=== PATIENT | female | born 1975 | race Caucasian/White ===

== ENCOUNTER 2019-12-18 12:39 | Day surgery (SDC) | payer OTHER, SELFPAY ==
[2019-12-17 12:12] VITALS: BMI 26.6
[2019-12-18] VITALS (8 sets, daily range): BP systolic 121–133; BP diastolic 70–89; PULSE 78–105; RESP 7–20; TEMP 36.2–36.9; O2SAT 95–100; BMI 25.8
--- NOTE | 2019-12-18 | PATH_ITS ---
[facility] Accession Number: [id number] . 01 Material submitted: . hemorrhoids - RECTAL HEMORRHOID . 01 Diagnosis: Anus/Rectum, Hemorrhoidectomy: External and internal hemorrhoidal tissue. Negative for dysplasia and malignancy. MRV 12/20/2019 1239 Local . 01 Electronically signed: . Alicia Blanca MD, Pathologist NPI- [id number] . 01 Gross description: . Received in formalin and labeled with rectal hemorrhoid are three pieces of timmons, firm tissue ranging in size from 3.2 x 1.5 x 1.0 to 2.0 x 0.9 x 0.7 cm. The three pieces are inked blue at the possible resection margin, serially sectioned and submitted in territory sales representative sections in cassettes A1-A3, with three pieces per cassette. ([id number]) /MRV 12/19/2019 0936 Local . 01 Pathologist provided ICD-10: K64.9 . 01 CPT . 350714 Performed at: [address] [id number] MD Surinder Bowilng MD Phone: [phone]
[2019-12-18] MEDS: LACTATED RINGERS 1,000 ML 100 ML IV ×2 (12:55→16:06)
--- NOTE | 2019-12-18 15:03 | PM.PREOP ---
Pre-operative Note Interval Note History & Physical reviewed/Exam performed by Physician: Yes Changes to H&P: No
[2019-12-18] MEDS: SCOPOLAMINE 1 PATCH TOP (15:33)
--- NOTE | 2019-12-18 15:56 | SUR.OPER ---
Prone on padded OR bed, head in foam head support, gel chest rolls, gel pad under knees, pillow under lower legs, toes free of pressure, arms secured on padded arm boards at <90 degrees abduction. Safety belt at thigh.
[2019-12-18] MEDS: BUPIVACAINE 0.25% (PF) VIAL 30 ML INJ (16:02)
[2019-12-18] MEDS: DIBUCAINE 1% OINT 28 GM 1 APPLIC TOP (16:03)
[2019-12-18] MEDS: fentaNYL 100 MCG/2 ML INJ IV ×2 (16:37→16:47)
--- NOTE | 2019-12-18 16:45 | PM.OP.1 ---
Operative Date/Time/Diagnoses Date of procedure: 12/18/19 Time of procedure: 16:45 Pre-op diagnosis: hemorrhoids Post-op diagnosis: same Procedure & Clinicians Procedure: closed excisional hemorrhoidectomy Same procedure as scheduled: Yes Indications: symptomatic prolapsing hemorrhoids Surgeon: Sampson Davis Anesthesia Type: General Operative Notes Findings: prolapsing hemorrhoids right anterior posterior and left lateral columns Specimen(s): other (hemorrhoids) Estimated Blood Loss (mL): 20 Procedure in detail: The patient was brought to the operating room placed supine on the table. Bilateral lower extremity compression devices were applied. General anesthesia was induced and they were intubated with an LMA. They were then placed into lithotomy position. They were then prepped and draped in usual sterile fashion. Time-out was performed ensure the correct patient procedure necessary equipment within the operating room. Rectal block was performed by injecting 20 mL of 0.25% bupivacaine into the intersphincteric groove. A internal examination of the anal canal was made. The right anterior right posterior and left lateral hemorrhoidal pedicles freely prolapsed. They were grasped elevated and excised with electorcautery off the internal spincter. The mucosal defect was then closed with a running 3-0 Vicyrl suture. Hemostasis was checked. The specimens were passed off the field. Wound was irrigated with saline. Gelfoam was then placed into the anal anal. Sponge and instrument counts were correct at the end of the procedure. They emerged from anesthesia were extubated and transferred to the postoperative care unit in stable condition Complications: none Post-operative Condition: stable Disposition: same day surgery
[2019-12-18] MEDS: CODEINE/ACETAMINOPHEN 30/300 TABLET 1 TAB PO (16:49)
--- NOTE | 2019-12-18 17:32 | SUR.PHASEII ---
Assisted patient to bathroom via wheelchair. Mother has prescription and all paperwork.
== END 2019-12-18 17:39 | disposition home or self-care (01) ==
PROVIDERS: Family Provider Family Medicine; PCP Internal Medicine; Referring Provider Internal Medicine; Visit Provider Surgery
PROC: (CPT 46260; principal; 2019-12-18 14:15)
DX: K64.2 Third degree hemorrhoids (principal)
CPT/HCPCS: 46260; J0330; J1100; J2405; J2704; J3010

== ENCOUNTER → 2020-06-14 14:11 | Outpatient (CLI) | payer OTHER, SELFPAY ==
[2020-06-16 01:29] LABS: COVID19 Sendout Not Detected (Not Detect)
== END ==
PROVIDERS: Family Provider Family Medicine; PCP Internal Medicine; Visit Provider Nurse Practitioner
DX: Z11.59 Encounter for screening for other viral diseases (principal)
CPT/HCPCS: 87635

== ENCOUNTER 2020-06-17 07:56 | Day surgery (SDC) | payer OTHER, SELFPAY ==
[2020-06-11 12:46] VITALS: BMI 27.3
[2020-06-17] VITALS (8 sets, daily range): BP systolic 99–119; BP diastolic 46–79; PULSE 78–98; RESP 13–20; TEMP 36.4–37.1; O2SAT 93–99; BMI 27.3
--- NOTE | 2020-06-17 | PATH_ITS ---
[facility] Accession Number: [id number] . 01 Material submitted: . hemorrhoids - HEMORRHOIDS . 01 Clinical history: . EXCISION HEMORRHOIDECTOMY . 02 Diagnosis: Hemorrhoids, Hemorrhoidectomy: Portions of hemorrhoid x3; negative for atypia or malignancy. MRV 06/19/2020 1352 Local . 02 Electronically signed: . Maira Krishna MD, Pathologist NPI- [id number] . 01 Gross description: . HEMORRHOIDS: Received in formalin are 3 fragments of baez soft tissue measuring 2.0 x 1.0 x 0.6 cm in aggregate. Tissue is inked. Specimen is sectioned and submitted in client support representative sections in 1 cassette. /SILVINA 06/18/2020 0147 Local . 02 Pathologist provided ICD-10: K64.9 . 02 CPT . 963324 Performed at: 01 [facility] [address], [place], [place] [id number] MD Surinder Bowling MD Phone: [phone] Performed at: [address] [facility] [place] [address] [place], [place] [id number] MD Paz Cooper MD Phone: [phone]
[2020-06-17] MEDS: LACTATED RINGERS 1,000 ML 42 ML IV (08:19)
[2020-06-17] MEDS: SCOPOLAMINE 1 PATCH TOP (09:33)
[2020-06-17] MEDS: BUPIVACAINE LIPOSOME 266 MG/20 ML VIAL INJ (10:00)
[2020-06-17] MEDS: DIBUCAINE 1% OINT 28 GM 1 APPLIC TOP (10:24)
--- NOTE | 2020-06-17 10:28 | PM.OP.1 ---
Operative Date/Time/Diagnoses Date of procedure: 06/17/20 Time of procedure: 10:28 Pre-op diagnosis: prolapsing hemorrhoids Post-op diagnosis: same Procedure & Clinicians Procedure: excisional hemorrhoidectomy Same procedure as scheduled: Yes Indications: 45F had a prior hemorrhoid surgery developed recurrent disease with prolapsing hemorrhoids here for elective hemorhoidectomy Surgeon: Sampson Davis Anesthesia Type: General Operative Notes Findings: Prolapsing grade 3 internal hemorrhoids left lateral, and right anterior & posterior Estimated Blood Loss (mL): 30 Procedure in detail: The patient was brought to the operating room placed supine on the table. Bilateral lower extremity compression devices were applied. General anesthesia was induced and they were intubated with an endotracheal tube. They were then placed into prone position and appropriately padded. They were then prepped and draped in usual sterile fashion. Time-out was performed. Rectal block was performed by injecting 20 mL of xerperal into the intersphincteric groove. A internal examination of the anal canal was made. The right anterior and right posterior and left lateral hemorrhoidal pedicles freely prolapsed consistent with grade 3. Begining with the left lateral pedicle it was grasped elevated and excised with electorcautery off the internal spincter. The mucosal defect was then closed with a running 3-0 Vicyrl suture. Hemostasis was checked. The procedure was then repeated for the right anterior and posterior. The specimens were passed off the field. Wound was irrigated with saline. Gelfoam coated in Dibucaine ointement !% was then placed into the anal anal. Sponge and instrument counts were correct at the end of the procedure. They emerged from anesthesia were extubated and transferred to the postoperative care unit in stable condition Complications: none Post-operative Condition: stable Disposition: same day surgery
[2020-06-17] MEDS: OXYCODONE IR 5 MG TABLET PO (11:41)
--- NOTE | 2020-06-17 15:58 | SUR.PHASEII ---
Late entry: brought in, rectal area c/d/i. Medicated- see EMAR, left when ready and left in stable condition.
== END 2020-06-17 11:50 | disposition home or self-care (01) ==
PROVIDERS: Family Provider Family Medicine; PCP Family Medicine; Referring Provider Surgery; Visit Provider Surgery
PROC: (CPT 46260; principal; 2020-06-17 09:15)
DX: K64.2 Third degree hemorrhoids (principal); M79.7 Fibromyalgia
CPT/HCPCS: 46260; C9290; J0330; J1100; J2250; J2405; J2704; J3010

== ENCOUNTER → 2020-08-26 15:21 | Outpatient (CLI) | payer OTHER, SELFPAY ==
--- NOTE | 2020-08-26 15:23 | DI.US.S_ITS ---
PROCEDURE: US PELVIC COMPLETE INDICATIONS: hx. ovarian cyst; abdominal bloating and fullness TECHNIQUE: Real-time scanning was performed of the pelvic organs, with image documentation. Additional endovaginal scanning was necessary due to incomplete visualization of the adnexal and endometrial structures by transabdominal scanning. COMPARISON: [facility], , PELVIC COMPLETE, 08/13/2013, 16:30. [facility], , PELVIC COMPLETE, 04/19/2013, 12:39. [facility], , PELVIC COMPLETE, 03/12/2016, 15:52. FINDINGS: Transabdominal scanning: Limited scanning through the kidneys shows no hydronephrosis. No pathologic free abdominal or pelvic fluid. Endovaginal scanning: Uterus: Uterus is normal in size at 9.1 x 3.9 x 4.9 cm. The endometrium measures 3 mm in combined thickness. Ovaries: The right ovary measures 1.9 x 1.3 x 1.4 cm. The left ovary measures 2.4 x 1.6 x 1 cm. The ovaries have a normal sonographic appearance. Normal appearing arterial waveforms are confirmed to each ovary. No adnexal masses are seen. IMPRESSION: Normal appearing ovaries, without cysts, masses, or ovarian torsion. Dictated by: Cm Caal M.D. on 08/26/2020 at 16:38 Approved by: Cm Caal M.D. on 08/26/2020 at 16:39
== END ==
PROVIDERS: Family Provider Family Medicine; PCP Family Medicine; Referring Provider Obstetrics & Gynecology; Visit Provider Obstetrics & Gynecology
DX: N83.201 Unspecified ovarian cyst, right side (principal); R14.0 Abdominal distension (gaseous); Z87.42 Personal history of other diseases of the female genital tract
CPT/HCPCS: 76856

== ENCOUNTER → 2020-09-20 10:26 | Outpatient (CLI) | payer OTHER, SELFPAY ==
--- NOTE | 2020-09-20 | DI.MG.S_ITS ---
BILATERAL DIGITAL SCREENING MAMMOGRAM 3D/2D WITH CAD: 09/20/2020 CLINICAL: Routine screening. Comparison is made to exams dated: 12/21/2016 mammogram and 06/25/2015 mammogram - [facility]. The tissue of both breasts is extremely dense, which lowers the sensitivity of mammography. Current study was also evaluated with a Computer Aided Detection (CAD) system. No significant masses, calcifications, or other findings are seen in either breast. There has been no significant interval change. IMPRESSION: NEGATIVE There is no mammographic evidence of malignancy. A 1 year screening mammogram is recommended. This exam was interpreted at Station ID: [id number]. NOTE: For mammograms, a report in lay terms will be sent to the patient. Approximately 15% of breast malignancies will not be visualized mammographically. In the management of a palpable breast mass, a negative mammogram must not discourage biopsy of a clinically suspicious lesion. Electronically Signed By: Suzanne maddox/nicole:09/22/2020 17:36:44 letter sent: Normal Exam ACR BI-RADS Category 1: Negative 3341F
== END ==
PROVIDERS: Family Provider Family Medicine; PCP Family Medicine; Referring Provider Family Medicine; Visit Provider Family Medicine
DX: Z12.31 Encounter for screening mammogram for malignant neoplasm of breast (principal)
CPT/HCPCS: 77063; 77067

== ENCOUNTER 2021-04-15 11:00 | Outpatient (RCR) | payer OTHER, SELFPAY ==
--- NOTE | 2021-02-18 16:00 | PT.OPPOC ---
Physical, Occupational & Speech Therapy At [facility] Current Diagnoses Incomplete uterovaginal prolapse (02/18/21) Rectocele (02/18/21) Pelvic and perineal pain (02/18/21) Visit Care Team Role Provider Type Aldair Aiken MD Attending Provider Physician Family Provider Primary Care Provider Referring Provider Specialty: Family Practice Address: [address] [place] [address], [facility] [place], [place], [facility] Email: [email or web address] Plan Of Care PT-OP-T Assessment and Plan Start: 02/18/21 07:31 Freq: Status: Active Protocol: Document 02/18/21 13:30 AMB (Rec: 02/20/21 10:03 AMB [id number]) Physical Therapy Assessment Rehab Potential Rehabilitation Potential Good Evaluation Complexity Number of Personal Factors/Comorbidities 3 or More Number of Body Systems Impaired 3 Clinical Presentation at Evaluation Evolving Impairments Impairments Functional Activities,Pain, Soft Tissue Mobility,Strength Goals Three Impairment Prolapse Product Owner Goal (LTG) Linn will be able to void both stool and urine without feeling the need to strain. LTG Duration 10 weeks Two Impairment Pelvic floor strength Short Term Goal (STG) Linn will improve her pelvic floor strength to at least 3/5. STG Duration 5 weeks Half-Way Goal (LTG) Linn will lift 20# while maintaining a pelvic floor contraction. LTG Duration 10 weeks One Impairment Pelvic floor HEP Short Term Goal (STG) Linn will be independent and consistent with a HEP for her pelvic floor strengthening and stretching. STG Duration 5 weeks Assessment Summary Assessment Linn attends physical therapy for prolapse. She has a long history of constipation, and it is thought that her pelvic floor tension is causing some of the difficulty voiding issues. Even with miralax she feels rectal pressure, sits on the toilet, and sometimes nothing happens. Has a large bowel movement every 3 days and then feels a lot of prolapse pressure afterwards. 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 She does report painful intercourse after the of her second child wear she tore more anteriorly. She was quite weak in her pelvic floor and did have tenderness bilaterally at obterator internus. She will benefit from pelvic floor physical therapy, although she did have previous pelvic floor physical therapy for stress urinary incontinence a few years ago and that therapy did not significantly change her symptoms. Physical Therapy Plan Frequency and Duration Frequency of Treatment 1x/Week Duration of Treatment 10 weeks Plan of Care Start Date 02/18/21 Plan of Care End Date 04/29/21 Therapeutic Interventions Therapeutic Interventions Home Exercise Program,Manual Therapy,Neuromuscular Re- education,Self-Care/Home Management,Therapeutic Activities,Therapeutic Exercises Modalities Biofeedback,Electric Stimulation Plan of Care Dates Plan of Care Start Date 02/18/21 Plan of Care End Date 04/29/21 Electronically Signed by: Heidy Cheatham, PT 02/22/21 [id number] Please Sign and Return: I have reviewed this Plan of Care and certify that the skilled therapy services above are required to meet the patient?s needs. Physician Signature Date Printed Name and Credentials Clinical Instructor Signature Printed Name and Credentials
--- NOTE | 2021-02-18 16:00 | PT.OIE ---
Current Diagnoses Incomplete uterovaginal prolapse (02/18/21) Rectocele (02/18/21) Pelvic and perineal pain (02/18/21) Past Medical History (Last Reviewed 08/21/20 @ 17:37 by Kelsie Kamara MD) Anesthesia complication Asthma Bipolar 1 disorder Dog bite of hand (12/2008) Fibromyalgia Headache, migraine Past Surgical History (Last Reviewed 08/21/20 @ 17:37 by Kelsie Kamara MD) History of ankle surgery (03/2019) Hx of appendectomy (10/2012) Hx of hemorrhoidectomy (12/18/19) Hx of laparoscopy (03/2017) Hx of lumpectomy (09/2016) Hx of removal of cyst (1997) Hx of tonsillectomy (2016) Status post appendectomy Status post endoscopy Status post laparoscopy (03/26/16) Status post loop electrosurgical excision procedure (LEEP) of cervix Visit Care Team Role Provider Type Aldair Aiken MD Attending Provider Physician Family Provider Primary Care Provider Referring Provider Specialty: [facility] Address: [address] [place] [address] [place], [place], [facility] Email: [email or web address] Physical Therapy Initial Evaluation PT-OP-A Visit Information Start: 02/18/21 07:31 Freq: Status: Active Protocol: Document 02/18/21 13:30 AMB (Rec: 02/18/21 16:10 AMB [email or web address]) Out-Patient Physical Therapy Visit Information Visit Information Visit Type Initial Evaluation Visit Start Time 13:30 Visit Stop Time 14:15 Total Visit Minutes 45 Visit Number 1 PT-OP-B Current Condition Start: 02/18/21 07:31 Freq: Status: Active Protocol: Document 02/18/21 13:30 AMB (Rec: 02/18/21 16:28 AMB [email or web address]) Current Condition History of Current Condition Onset Date 2019 Current Complaints prolapse in the context of chronic constipation History of Current Condition Linn attends physical therapy with difficulty having bowel movements in the context of Celiac and IBS diagnosis. Taking miralax now , and it is better, but still only has a bowel movement maybe once every 3 days and then it is large but soft. Was evaluated by urogyn who said she needed to work on her constipation before dealing with her prolapse. Any straining increases feeling of pelvic heaviness. Recently had two hemheroidectomies and after the second felt like having a bowel movement was harder. History of 2 vaginal deliveries with tearing 10 years ago+. 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 RA and fibromyalgia diagnoses. Does have a history of painful intercourse since baby #2 was born. Does have a little bit of stress urinary incontinence as well. Doesn't drink enough water. Treatment Goals Patient/Caregiver Goals Be able to have bowel movement without pelvic floor heaviness/pain afterward Personal Factors Other Personal Factors That May Effect RA, fibromyalgia, IBS, SI pain Therapy/Recovery PT-OP-C Subjective Start: 02/18/21 07:31 Freq: Status: Active Protocol: Document 02/18/21 13:30 AMB (Rec: 02/20/21 10:03 AMB [id number]) Patient Questionnaires Pelvic Pain and Urgency/Frequency Patient Symptom Scale Pelvic Pain Score 14 PT-OP-I Pelvic Floor Start: 02/18/21 07:31 Freq: Status: Active Protocol: Document 02/18/21 13:30 AMB (Rec: 02/22/21 10:57 AMB [email or web address]) Pelvic Floor Assessment Urine Pelvic Floor Surgery No Urinary Symptoms Prolapse,Incomplete Emptying, Falling Out Feeling/Heavy Leakage Size Small Leakage Cause Cough,Exercise,Sneeze Other Leakage Causes intercourse Leaks Per Day 2 Voiding Frequency 10x/day Nocturia 1 Urine Pad Type Panty Liner Bowel Bowel Symptoms Constipation Bowel Movement Frequency every 3 days Ralls Stool Chart Type 1-7 4 Ralls Stool Chart Comments with miralax Pelvic Clock Pelvic Clock Other Tenderness at obturator internus bilaterally Prolapse Cystocele Grade 2 Rectocele Grade 3 Prolapse Comments pt states she has been able to see cervix, cervix not visualized today with valsalva , but more rectocele Perineal Descent Resting Absent Bearing Present Contraction Ability Voluntary Contraction Weak Voluntary Relaxation Moderate Manual Muscle Testing Left 1 Manual Muscle Testing Right 1 Manual Muscle Testing Anterior 1 Manual Muscle Testing Posterior 2 Muscle Endurance (Seconds) 4 Number of Quick Contractions In 10 3 Seconds PT-OP-T Assessment and Plan Start: 02/18/21 07:31 Freq: Status: Active Protocol: Document 02/18/21 13:30 AMB (Rec: 02/20/21 10:03 AMB [id number]) Physical Therapy Assessment Rehab Potential Rehabilitation Potential Good Evaluation Complexity Number of Personal Factors/Comorbidities 3 or More Number of Body Systems Impaired 3 Clinical Presentation at Evaluation Evolving Impairments Impairments Functional Activities,Pain, Soft Tissue Mobility,Strength Goals Three Impairment Prolapse Railroad Brake Repairer Goal (LTG) Linn will be able to void both stool and urine without feeling the need to strain. LTG Duration 10 weeks Two Impairment Pelvic floor strength Short Term Goal (STG) Linn will improve her pelvic floor strength to at least 3/5. STG Duration 5 weeks Fdc Goal (LTG) Linn will lift 20# while maintaining a pelvic floor contraction. LTG Duration 10 weeks One Impairment Pelvic floor HEP Short Term Goal (STG) Linn will be independent and consistent with a HEP for her pelvic floor strengthening and stretching. STG Duration 5 weeks Assessment Summary Assessment Linn attends physical therapy for prolapse. She has a long history of constipation, and it is thought that her pelvic floor tension is causing some of the difficulty voiding issues. Even with miralax she feels rectal pressure, sits on the toilet, and sometimes nothing happens. Has a large bowel movement every 3 days and then feels a lot of prolapse pressure afterwards. 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 She does report painful intercourse after the of her second child wear she tore more anteriorly. She was quite weak in her pelvic floor and did have tenderness bilaterally at obterator internus. She will benefit from pelvic floor physical therapy, although she did have previous pelvic floor physical therapy for stress urinary incontinence a few years ago and that therapy did not significantly change her symptoms. Physical Therapy Plan Frequency and Duration Frequency of Treatment 1x/Week Duration of Treatment 10 weeks Plan of Care Start Date 02/18/21 Plan of Care End Date 04/29/21 Therapeutic Interventions Therapeutic Interventions Home Exercise Program,Manual Therapy,Neuromuscular Re- education,Self-Care/Home Management,Therapeutic Activities,Therapeutic Exercises Modalities Biofeedback,Electric Stimulation
--- NOTE | 2021-02-24 15:45 | PT.OTN ---
Current Diagnoses Incomplete uterovaginal prolapse (02/24/21) Rectocele (02/24/21) Pelvic and perineal pain (02/24/21) Physical Therapy Treatment Note PT-OP-A Visit Information Start: 02/18/21 07:31 Freq: Status: Active Protocol: Document 02/24/21 13:45 AMB (Rec: 02/24/21 14:30 AMB [id number]) Out-Patient Physical Therapy Visit Information Visit Information Visit Type Treatment Note Visit Start Time 13:45 Visit Stop Time 14:30 Total Visit Minutes 45 Visit Number 2 PT-OP-B Current Condition Start: 02/18/21 07:31 Freq: Status: Active Protocol: Document 02/18/21 13:30 AMB (Rec: 02/18/21 16:28 AMB [email or web address]) Current Condition History of Current Condition Onset Date 2019 Current Complaints prolapse in the context of chronic constipation History of Current Condition Linn attends physical therapy with difficulty having bowel movements in the context of Celiac and IBS diagnosis. Taking miralax now , and it is better, but still only has a bowel movement maybe once every 3 days and then it is large but soft. Was evaluated by urogyn who said she needed to work on her constipation before dealing with her prolapse. Any straining increases feeling of pelvic heaviness. Recently had two hemheroidectomies and after the second felt like having a bowel movement was harder. History of 2 vaginal deliveries with tearing 10 years ago+. 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 RA and fibromyalgia diagnoses. Does have a history of painful intercourse since baby #2 was born. Does have a little bit of stress urinary incontinence as well. Doesn't drink enough water. Treatment Goals Patient/Caregiver Goals Be able to have bowel movement without pelvic floor heaviness/pain afterward Personal Factors Other Personal Factors That May Effect RA, fibromyalgia, IBS, SI pain Therapy/Recovery PT-OP-C Subjective Start: 02/18/21 07:31 Freq: Status: Active Protocol: Document 02/24/21 13:45 AMB (Rec: 02/24/21 14:30 AMB [id number]) OP-PT Subjective Patient Comments Patient Comments Pt is doing fine, about the same. PT-OP-I Pelvic Floor Start: 02/18/21 07:31 Freq: Status: Active Protocol: Document 02/18/21 13:30 AMB (Rec: 02/22/21 10:57 AMB [email or web address]) Pelvic Floor Assessment Urine Pelvic Floor Surgery No Urinary Symptoms Prolapse,Incomplete Emptying, Falling Out Feeling/Heavy Leakage Size Small Leakage Cause Cough,Exercise,Sneeze Other Leakage Causes intercourse Leaks Per Day 2 Voiding Frequency 10x/day Nocturia 1 Urine Pad Type Panty Liner Bowel Bowel Symptoms Constipation Bowel Movement Frequency every 3 days [place]roft Stool Chart Type 1-7 4 [place] Stool Chart Comments with miralax Pelvic Clock Pelvic Clock Other Tenderness at obturator internus bilaterally Prolapse Cystocele Grade 2 Rectocele Grade 3 Prolapse Comments pt states she has been able to see cervix, cervix not visualized today with valsalva , but more rectocele Perineal Descent Resting Absent Bearing Present Contraction Ability Voluntary Contraction Weak Voluntary Relaxation Moderate Manual Muscle Testing Left 1 Manual Muscle Testing Right 1 Manual Muscle Testing Anterior 1 Manual Muscle Testing Posterior 2 Muscle Endurance (Seconds) 4 Number of Quick Contractions In 10 3 Seconds PT-OP-Q Treatments Start: 02/18/21 07:31 Freq: Status: Active Protocol: Document 02/24/21 13:45 AMB (Rec: 02/24/21 15:40 AMB [email or web address]) Therapeutic Exercises Supine Exercises 4 Supine Exercise Name pelvic floor strengthening quick flicks Comments with legs elevated on bolster 3 Supine Exercise Name adductor stretches Reps/Minutes 30'x2 2 Supine Exercise Name hamstring stretches Reps/Minutes 30x2 1 Supine Exercise Name HAPPY Baby Reps/Minutes 30x2 Standing Exercises 1 Standing Exercise Name deep squat with hips abducted and external rotation Manual Therapy Treatment Soft Tissue Mobilization 1 Body Location ILU Body Position Supine PT-OP-T Assessment and Plan Start: 02/18/21 07:31 Freq: Status: Active Protocol: Document 02/24/21 13:45 AMB (Rec: 02/24/21 14:30 AMB [id number]) Physical Therapy Assessment Assessment Summary Assessment Discussed use of dilator for self release of obterators and could consider therawand if dilator doesn't work well. Could also consider pessary and discussed use and educated pt in pessaries. Pt to continue stretching and strengthening. Physical Therapy Plan Next Visit Focus/Plan Next Note Type Treatment Note Next Visit Plan Consider internal release as necessary
--- NOTE | 2021-03-04 15:36 | PT.OTN ---
Current Diagnoses Incomplete uterovaginal prolapse (03/04/21) Rectocele (03/04/21) Pelvic and perineal pain (03/04/21) Physical Therapy Treatment Note PT-OP-A Visit Information Start: 02/18/21 07:31 Freq: Status: Active Protocol: Document 03/04/21 13:30 AMB (Rec: 03/04/21 14:04 AMB [id number]) Out-Patient Physical Therapy Visit Information Visit Information Visit Type Treatment Note Visit Start Time 13:30 Visit Stop Time 14:15 Total Visit Minutes 45 Visit Number 3 PT-OP-B Current Condition Start: 02/18/21 07:31 Freq: Status: Active Protocol: Document 02/18/21 13:30 AMB (Rec: 02/18/21 16:28 AMB [email or web address]) Current Condition History of Current Condition Onset Date 2019 Current Complaints prolapse in the context of chronic constipation History of Current Condition Linn attends physical therapy with difficulty having bowel movements in the context of Celiac and IBS diagnosis. Taking miralax now , and it is better, but still only has a bowel movement maybe once every 3 days and then it is large but soft. Was evaluated by urogyn who said she needed to work on her constipation before dealing with her prolapse. Any straining increases feeling of pelvic heaviness. Recently had two hemheroidectomies and after the second felt like having a bowel movement was harder. History of 2 vaginal deliveries with tearing 10 years ago+. 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 RA and fibromyalgia diagnoses. Does have a history of painful intercourse since baby #2 was born. Does have a little bit of stress urinary incontinence as well. Doesn't drink enough water. Treatment Goals Patient/Caregiver Goals Be able to have bowel movement without pelvic floor heaviness/pain afterward Personal Factors Other Personal Factors That May Effect RA, fibromyalgia, IBS, SI pain Therapy/Recovery PT-OP-C Subjective Start: 02/18/21 07:31 Freq: Status: Active Protocol: Document 03/04/21 13:30 AMB (Rec: 03/04/21 14:04 AMB [id number]) OP-PT Subjective Patient Comments Patient Comments Has been doing her pelvic floor wand exercise, and pt felt that it did help her have a better bowel movement the following day. PT-OP-I Pelvic Floor Start: 02/18/21 07:31 Freq: Status: Active Protocol: Document 02/18/21 13:30 AMB (Rec: 02/22/21 10:57 AMB [email or web address]) Pelvic Floor Assessment Urine Pelvic Floor Surgery No Urinary Symptoms Prolapse,Incomplete Emptying, Falling Out Feeling/Heavy Leakage Size Small Leakage Cause Cough,Exercise,Sneeze Other Leakage Causes intercourse Leaks Per Day 2 Voiding Frequency 10x/day Nocturia 1 Urine Pad Type Panty Liner Bowel Bowel Symptoms Constipation Bowel Movement Frequency every 3 days [place] Stool Chart Type 1-7 4 [place] Stool Chart Comments with miralax Pelvic Clock Pelvic Clock Other Tenderness at obturator internus bilaterally Prolapse Cystocele Grade 2 Rectocele Grade 3 Prolapse Comments pt states she has been able to see cervix, cervix not visualized today with valsalva , but more rectocele Perineal Descent Resting Absent Bearing Present Contraction Ability Voluntary Contraction Weak Voluntary Relaxation Moderate Manual Muscle Testing Left 1 Manual Muscle Testing Right 1 Manual Muscle Testing Anterior 1 Manual Muscle Testing Posterior 2 Muscle Endurance (Seconds) 4 Number of Quick Contractions In 10 3 Seconds PT-OP-Q Treatments Start: 02/18/21 07:31 Freq: Status: Active Protocol: Document 03/04/21 13:30 AMB (Rec: 03/04/21 15:36 AMB [id number]) Therapeutic Exercises Sitting Exercises 1 Sitting Exercise Name roll in roll out ball #2 t band Reps/Minutes 10 ea Manual Therapy Treatment Soft Tissue Mobilization 2 Body Location obturator intenus-bilateral Mobilization Type Myofascial Release Intensity/Depth Moderate Body Position Hooklying 1 Body Location external obturator release Comments self release with miracle ball PT-OP-T Assessment and Plan Start: 02/18/21 07:31 Freq: Status: Active Protocol: Document 03/04/21 13:30 AMB (Rec: 03/04/21 15:36 AMB [id number]) Physical Therapy Assessment Assessment Summary Assessment Linn appears to be doing well with internal release with wand that she bought if she is having better bowel movements afterwards. Physical Therapy Plan Next Visit Focus/Plan Next Note Type Treatment Note Next Visit Plan Reassess pelvic floor strength
--- NOTE | 2021-03-18 16:21 | PT.OTN ---
Current Diagnoses Incomplete uterovaginal prolapse (03/18/21) Rectocele (03/18/21) Pelvic and perineal pain (03/18/21) Physical Therapy Treatment Note PT-OP-A Visit Information Start: 02/18/21 07:31 Freq: Status: Active Protocol: Document 03/18/21 13:30 AMB (Rec: 03/20/21 16:21 AMB [email or web address]) Out-Patient Physical Therapy Visit Information Visit Information Visit Type Treatment Note Visit Start Time 13:30 Visit Stop Time 14:15 Total Visit Minutes 45 Visit Number 4 PT-OP-B Current Condition Start: 02/18/21 07:31 Freq: Status: Active Protocol: Document 02/18/21 13:30 AMB (Rec: 02/18/21 16:28 AMB [email or web address]) Current Condition History of Current Condition Onset Date 2019 Current Complaints prolapse in the context of chronic constipation History of Current Condition Linn attends physical therapy with difficulty having bowel movements in the context of Celiac and IBS diagnosis. Taking miralax now , and it is better, but still only has a bowel movement maybe once every 3 days and then it is large but soft. Was evaluated by urogyn who said she needed to work on her constipation before dealing with her prolapse. Any straining increases feeling of pelvic heaviness. Recently had two hemheroidectomies and after the second felt like having a bowel movement was harder. History of 2 vaginal deliveries with tearing 10 years ago+. 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 RA and fibromyalgia diagnoses. Does have a history of painful intercourse since baby #2 was born. Does have a little bit of stress urinary incontinence as well. Doesn't drink enough water. Treatment Goals Patient/Caregiver Goals Be able to have bowel movement without pelvic floor heaviness/pain afterward Personal Factors Other Personal Factors That May Effect RA, fibromyalgia, IBS, SI pain Therapy/Recovery PT-OP-C Subjective Start: 02/18/21 07:31 Freq: Status: Active Protocol: Document 03/18/21 13:30 AMB (Rec: 03/20/21 16:21 AMB [email or web address]) OP-PT Subjective Patient Comments Patient Comments Pt feels like she is having better bowel movements, but new meds are also giving her intermittent diarrhea. PT-OP-I Pelvic Floor Start: 04/28/21 07:31 Freq: Status: Active Protocol: Document 02/18/21 13:30 AMB (Rec: 02/22/21 10:57 AMB [email or web address]) Pelvic Floor Assessment Urine Pelvic Floor Surgery No Urinary Symptoms Prolapse,Incomplete Emptying, Falling Out Feeling/Heavy Leakage Size Small Leakage Cause Cough,Exercise,Sneeze Other Leakage Causes intercourse Leaks Per Day 2 Voiding Frequency 10x/day Nocturia 1 Urine Pad Type Panty Liner Bowel Bowel Symptoms Constipation Bowel Movement Frequency every 3 days [place] Stool Chart Type 1-7 4 [place] Stool Chart Comments with miralax Pelvic Clock Pelvic Clock Other Tenderness at obturator internus bilaterally Prolapse Cystocele Grade 2 Rectocele Grade 3 Prolapse Comments pt states she has been able to see cervix, cervix not visualized today with valsalva , but more rectocele Perineal Descent Resting Absent Bearing Present Contraction Ability Voluntary Contraction Weak Voluntary Relaxation Moderate Manual Muscle Testing Left 1 Manual Muscle Testing Right 1 Manual Muscle Testing Anterior 1 Manual Muscle Testing Posterior 2 Muscle Endurance (Seconds) 4 Number of Quick Contractions In 10 3 Seconds PT-OP-Q Treatments Start: 02/18/21 07:31 Freq: Status: Active Protocol: Document 03/18/21 13:30 AMB (Rec: 03/20/21 16:21 AMB [email or web address]) Therapeutic Exercises Supine Exercises 4 Supine Exercise Name pelvic floor strengthening quick flicks/long holds with NMES Comments with legs elevated on bolster Sitting Exercises 1 Sitting Exercise Name roll in roll out ball #2 t band Reps/Minutes 10 ea PT-OP-T Assessment and Plan Start: 02/18/21 07:31 Freq: Status: Active Protocol: Document 03/18/21 13:30 AMB (Rec: 03/20/21 16:21 AMB [email or web address]) Physical Therapy Assessment Assessment Summary Assessment Pt felt NMES was helpful for helping to engage pelvic floor and relax as well. It is difficult to get a good contraction otherwise, even in supine. Physical Therapy Plan Next Visit Focus/Plan Next Note Type Treatment Note Next Visit Plan follow up on pessary/ NMES
--- NOTE | 2021-04-15 12:00 | PT.OTN ---
Current Diagnoses Incomplete uterovaginal prolapse (04/15/21) Rectocele (04/15/21) Pelvic and perineal pain (04/15/21) Physical Therapy Treatment Note PT-OP-A Visit Information Start: 02/18/21 07:31 Freq: Status: Active Protocol: Document 04/15/21 11:00 AMB (Rec: 04/15/21 11:36 AMB [id number]) Out-Patient Physical Therapy Visit Information Visit Information Visit Type Treatment Note Visit Start Time 11:00 Visit Stop Time 11:45 Total Visit Minutes 45 Visit Number 5 PT-OP-B Current Condition Start: 02/18/21 07:31 Freq: Status: Active Protocol: Document 02/18/21 13:30 AMB (Rec: 02/18/21 16:28 AMB [email or web address]) Current Condition History of Current Condition Onset Date 2019 Current Complaints prolapse in the context of chronic constipation History of Current Condition Linn attends physical therapy with difficulty having bowel movements in the context of Celiac and IBS diagnosis. Taking miralax now , and it is better, but still only has a bowel movement maybe once every 3 days and then it is large but soft. Was evaluated by urogyn who said she needed to work on her constipation before dealing with her prolapse. Any straining increases feeling of pelvic heaviness. Recently had two hemheroidectomies and after the second felt like having a bowel movement was harder. History of 2 vaginal deliveries with tearing 10 years ago+. 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 RA and fibromyalgia diagnoses. Does have a history of painful intercourse since baby #2 was born. Does have a little bit of stress urinary incontinence as well. Doesn't drink enough water. Treatment Goals Patient/Caregiver Goals Be able to have bowel movement without pelvic floor heaviness/pain afterward Personal Factors Other Personal Factors That May Effect RA, fibromyalgia, IBS, SI pain Therapy/Recovery PT-OP-C Subjective Start: 02/18/21 07:31 Freq: Status: Active Protocol: Document 04/15/21 11:00 AMB (Rec: 04/17/21 08:07 AMB [email or web address]) OP-PT Subjective Patient Comments Patient Comments Pt reports she will be having surgery for her prolapse in April. Comes in with questions regarding that. PT-OP-I Pelvic Floor Start: 02/18/21 07:31 Freq: Status: Active Protocol: Document 02/18/21 13:30 AMB (Rec: 02/22/21 10:57 AMB [email or web address]) Pelvic Floor Assessment Urine Pelvic Floor Surgery No Urinary Symptoms Prolapse,Incomplete Emptying, Falling Out Feeling/Heavy Leakage Size Small Leakage Cause Cough,Exercise,Sneeze Other Leakage Causes intercourse Leaks Per Day 2 Voiding Frequency 10x/day Nocturia 1 Urine Pad Type Panty Liner Bowel Bowel Symptoms Constipation Bowel Movement Frequency every 3 days [place] Stool Chart Type 1-7 4 [place] Stool Chart Comments with miralax Pelvic Clock Pelvic Clock Other Tenderness at obturator internus bilaterally Prolapse Cystocele Grade 2 Rectocele Grade 3 Prolapse Comments pt states she has been able to see cervix, cervix not visualized today with valsalva , but more rectocele Perineal Descent Resting Absent Bearing Present Contraction Ability Voluntary Contraction Weak Voluntary Relaxation Moderate Manual Muscle Testing Left 1 Manual Muscle Testing Right 1 Manual Muscle Testing Anterior 1 Manual Muscle Testing Posterior 2 Muscle Endurance (Seconds) 4 Number of Quick Contractions In 10 3 Seconds PT-OP-Q Treatments Start: 02/18/21 07:31 Freq: Status: Active Protocol: Document 04/15/21 11:00 AMB (Rec: 04/15/21 11:36 AMB [id number]) Therapeutic Exercises Supine Exercises 4 Supine Exercise Name pelvic floor strengthening quick flicks/long holds with NMES Comments with legs elevated on bolster 3 Supine Exercise Name adductor stretches Reps/Minutes 30'x2 2 Supine Exercise Name hamstring stretches Reps/Minutes 30x2 1 Supine Exercise Name HAPPY Baby Reps/Minutes 30x2 Sitting Exercises 1 Sitting Exercise Name roll in roll out ball #2 t band Reps/Minutes 10 ea PT-OP-T Assessment and Plan Start: 02/18/21 07:31 Freq: Status: Active Protocol: Document 04/15/21 11:00 AMB (Rec: 04/15/21 11:36 AMB [id number]) Physical Therapy Assessment Goals Three Impairment Prolapse Director Of Personnel Goal (LTG) Linn will be able to void both stool and urine without feeling the need to strain. LTG Duration MET Two Impairment Pelvic floor strength Short Term Goal (STG) Linn will improve her pelvic floor strength to at least 3/5. STG Duration 5 weeks Director Of Personnel Goal (LTG) Linn will lift 20# while maintaining a pelvic floor contraction. LTG Duration 10 weeks One Impairment Pelvic floor HEP Short Term Goal (STG) Linn will be independent and consistent with a HEP for her pelvic floor strengthening and stretching. STG Duration MET Assessment Summary Assessment Linn has met some of her goals in physical therapy, andhas managed her constipation well (with Mirlax ). She is going to have surgery for her prolapse, since her trial of a pessary didn't go well, and she continues to feel the prolapse is making it more difficult to have a normal bowel movement and normal urination. All questions were answered and she will continue to work on her pelvic floor strength independently. She would be welcome to return to PT in the future if necessary. Physical Therapy Plan Discharge Physical Therapy Discharge Reasons Patient Request
== END 2021-04-20 08:53 | disposition home or self-care (01) ==
LOC: PHYS 11:00
PROVIDERS: Family Provider Family Medicine; PCP Family Medicine; Referring Provider Family Medicine; Visit Provider Family Medicine
DX: R10.2 Pelvic and perineal pain (principal); N81.6 Rectocele; N81.2 Incomplete uterovaginal prolapse
CPT/HCPCS: 97110; 97140; 97162

== ENCOUNTER 2021-09-02 16:02 | Emergency (ER) | payer OTHER, SELFPAY ==
[2021-09-02] VITALS (7 sets, daily range): BP systolic 151–152; BP diastolic 87–97; PULSE 78–92; RESP 18–32; TEMP 36.2; O2SAT 96–98; BMI 28.1
[2021-09-02 16:55] LABS: Add Manual Diff / Slide Review NO; Basophils Absolute Auto 0 /uL (0-100); Basophils Percent Auto 0.4 % (0-2); Eosinophils Absolute Auto 0 /uL (0-450); Eosinophils Percent Auto 0.1 % (2-4); Hematocrit 43.3 % (36-46); Hemoglobin 14.4 g/dL (12.0-16.0); Lymphocytes Absolute Auto 2400 /uL (1100-4500); Lymphocytes Percent Auto 20.6 % (25-40); Mean Corpuscular HGB Conc 33.3 % (30-36); Mean Corpuscular Hemoglobin 29.3 PG (26-34); Monocytes Absolute Auto 600 /uL (0-900); Monocytes Percent Auto 5.2 % (3-14); Neutrophils Absolute Auto 8600 /uL (1500-7000); Neutrophils Percent Auto 73.7 % (50-75); Platelet Count 292 X10^3/uL (150-400); Red Blood Cell Count 4.93 X10^6/uL (4.0-5.2); Red Cell Distribution Width 13.4 % (11.6-14.8); White Blood Cell Count 11.7 X10^3/uL (4.5-11.0)
[2021-09-02 17:04] LABS: INR 0.9 (0.9-1.3); Prothrombin Time 9.5 SECONDS (10.1-12.7)
[2021-09-02 17:07] LABS: PTT Partial Thromboplastin Tim 24 SECONDS (26.4-36.2)
[2021-09-02 17:10] LABS: Alanine Aminotransferase 27 IU/L (<35); Albumin 4.4 g/dL (3.5-5.0); Albumin Globulin Ratio 1.6 (1.0-2.8); Alkaline Phosphatase 37 U/L (38-126); Aspartate Aminotransferase 35 IU/L (14-36); BUN Creatinine Ratio 18.7 (6-22); Blood Urea Nitrogen 14 mg/dL (7-17); Calcium 9.6 mg/dL (8.4-10.2); Carbon Dioxide 19 mmol/L (22-32); Chloride 106 mmol/L (98-107); Creatine Kinase 40 U/L (30-135); Estimated Glomerular Filt Rate > 60.0 mL/min (>60); Globulin 2.8 g/dL (1.7-4.1); Glucose 120 mg/dL (70-100); HEMOLYSIS 76 (0-50); Lipase 83 U/L (23-300); Magnesium 2.1 mg/dL (1.6-2.3); Potassium 4.1 mmol/L (3.4-5.1); Sodium 138 mmol/L (137-145); Total Protein 7.2 g/dL (6.3-8.2)
--- NOTE | 2021-09-02 17:11 | DI.CT.S_ITS ---
PROCEDURE: CT ANGIO CHEST PE PROTOCOL INDICATIONS: Short of breath, recent COVID TECHNIQUE: After the administration of intravenous contrast, 2 mm thick sections acquired from the pulmonary apices to the posterior costophrenic angles. 3-dimensional maximum intensity projection (MIP) coronal and sagittal reformats were then acquired through the thorax. For radiation dose reduction, the following was used: automated exposure control, adjustment of mA and/or kV according to patient size. COMPARISON: None. FINDINGS: Image quality: Excellent. Pulmonary arteries: Pulmonary arteries are normal in size, and demonstrate no intraluminal filling defects to suggest central pulmonary embolism. Lungs and pleura: Lungs are clear. No pleural effusions or pneumothorax. Central and peripheral airways are patent. Mediastinum: Heart size is normal, without pericardial effusion. No mediastinal or hilar adenopathy. Thoracic aorta is normal in caliber and enhancement. Esophagus is normal in caliber. There is a small hiatal hernia. Bones and chest wall: No suspicious bony lesions. Ribs and thoracic spine appear intact throughout. Thyroid gland demonstrates no significant abnormality. No axillary or supraclavicular adenopathy. Abdomen: Visualized upper abdominal solid organs appear normal in the early arterial phase of enhancement. IMPRESSION: Negative for pulmonary embolism. No focal infiltrates are seen. No significant pulmonary abnormality is seen. Incidental note is made of: Small hiatal hernia Dictated by: Cm Caal M.D. on 09/02/2021 at 16:36 Approved by: Cm Caal M.D. on 09/02/2021 at 16:37
[2021-09-02 17:19] LABS: NT-proBNP (BNP-Adult 18+) 58 pg/mL (<125)
[2021-09-02 17:21] LABS: Troponin I < 0.012 ng/mL (0.01-0.034)
[2021-09-02] MEDS: hydrOXYzine pamoate 25 MG CAPSULE 50 MG PO (18:12)
--- NOTE | 2021-09-02 18:24 | ED.SOB ---
HPI - SOB/Dyspnea <Ciara LeyvaBRANDONP-BC - Last Filed: 09/02/21 18:56> General Chief Complaint: Shortness of Breath/Dyspnea Stated Complaint: SOB X1 1/2/Recent COVID Time Seen by Provider: 09/02/21 16:26 Source: patient Mode of arrival: Ambulatory Limitations: no limitations History of Present Illness HPI Narrative: Female nonsmoker with history of rheumatoid arthritis as well as COVID who presents with a chief complaint of increasing shortness of breath over the past 10 days. She was diagnosed with COVID on 08/12/2021, received antibodies on day 3, was also placed on steroids and antibiotics. She notes that shortness of breath got worse on 08/23/2021. She has an MDI at home, stopped using it because it was not helping. She was fully vaccinated with Smarp Oy. She is immunocompromised due to her RA medications. She denies any current fevers muscle aches or chills. She complains of shortness of breath, difficulty catching her breath, slight chest pain. She saw her primary care provider yesterday for this. She is on day 2 of [facility]. She complains of transient chest pain, fatigue, states she feels like she is panicking. She does note history of anxiety. Denies any nausea vomiting or diarrhea. Related Data Home Medications Medication Instructions Recorded Confirmed acyclovir 400 mg tablet 400 mg PO BID 12/05/19 03/27/21 duloxetine 40 mg capsule,delayed 40 mg PO DAILY 12/05/19 03/27/21 release sprinkle lamotrigine 200 mg tablet 200 mg PO DAILY 12/05/19 03/27/21 hydroxychloroquine 200 mg tablet 200 mg PO DAILY 03/27/21 03/27/21 leflunomide 20 mg tablet 20 mg PO DAILY 03/27/21 03/27/21 prednisolone 5 mg tablet 5 mg PO DAILY 03/27/21 03/27/21 Previous Rx's Medication Instructions Recorded norethindrone acetate 1 mg-ethinyl 1 tab PO QDAY #30 tab 08/05/16 estradiol 20 mcg tablet (Junel) acetaminophen 325 mg capsule 650 mg PO QID PRN #60 cap 12/18/19 (Tylenol) dibucaine 1 % rectal ointment 1 applictn PA QID PRN #56.7 gram 06/17/20 hydroxyzine HCl 50 mg tablet 50 mg PO TID PRN #10 tab 09/02/21 Allergies Allergy/AdvReac Type Severity Reaction Status Date / Time amoxicillin [AMOXICILLIN] Allergy Intermediate extensive Verified 03/27/21 15:10 hives Sulfa (Sulfonamide Allergy Mild HIVES/RASH Verified 03/27/21 15:10 Antibiotics) [SULFA (SULFONAMIDE ANTIBIOTICS)] hydrocodone AdvReac Unknown Feels Verified 03/27/21 15:10 cheri Review of Systems <ERIC Herndon - Last Filed: 09/02/21 18:56> Review of Systems Narrative: GENERAL: Denies chills, fatigue, malaise, fever, sweats. HEENT: Denies sinus pain, ear pain, sore throat, difficulty swallowing, dizziness. RESPIRATORY: see HPI CARDIOVASCULAR: see HPI GASTROINTESTINAL: Denies nausea, vomiting, abdominal pain, diarrhea, constipation, melena. : Denies dysuria, frequency, incontinence, hematuria, urinary retention. MUSCULOSKELETAL: denies weakness, joint pain, or bony pain SKIN: Denies rash, skin lesions, or other NEUROLOGIC: Denies weakness, headache, numbness, change in speech, confusion, seizures, incoordination. PSYCHIATRIC: No concerning psychosocial issues. 12 point review of systems is negative except for those stated above Patient History <ERIC Herndon - Last Filed: 09/02/21 18:56> Medical History (Updated 09/02/21 @ 18:35 by ERIC Herndon) Anesthesia complication Asthma Bipolar 1 disorder Dog bite of hand (12/2008) Fibromyalgia Headache, migraine Surgical History History of ankle surgery (03/2019) Hx of appendectomy (10/2012) Hx of hemorrhoidectomy (12/18/19) Hx of laparoscopy (03/2017) Hx of lumpectomy (09/2016) Hx of removal of cyst (1997) Hx of tonsillectomy (2016) Status post appendectomy Status post endoscopy Status post laparoscopy (03/26/16) Status post loop electrosurgical excision procedure (LEEP) of cervix Family History Brother Age: 47 Cancer Father Age: 72 Cancer Heart disease Hypertension High cholesterol Mental health problem Grandfather Heart disease Hypertension Stroke Grandmother Cancer Mother Age: 69 Hypertension Grandmother Heart disease Hypertension Social History household members: spouse and children Smoking Status: Never smoker alcohol intake: current Smoking Status: Never smoker alcohol intake frequency: holidays/special occasions only Substance Use Type: does not use Exam <ERIC Herndon - Last Filed: 09/02/21 18:56> Narrative Exam Narrative: GENERAL: This is a well-nourished, well-developed patient, in mild distress. HEAD: Atraumatic. Normocephalic. No temporal or scalp tenderness. EYES: Pupils equal round and reactive. Extraocular motions intact. No scleral icterus. No injection or drainage. ENT: Nose without bleeding, purulent drainage or septal hematoma. wearing a mask. Airway patent. NECK: Trachea midline. No JVD or lymphadenopathy. Supple, nontender, no meningeal signs. CARDIOVASCULAR: Regular rate and rhythm RESPIRATORY: Clear to auscultation. Breath sounds equal bilaterally. No wheezes, rales, or rhonchi. Mildly tachypneic at times. No cough noted. GASTROINTESTINAL: Abdomen soft, non-tender, nondistended. No hepato-splenomegaly, or palpable masses. No guarding. EXTREMITIES: No clubbing, cyanosis, or edema. No joint tenderness, effusion, or edema noted. BACK: Nontender without deformity or crepitance. No flank tenderness. NEURO: AOx3. SKIN: No rash or erythema on visible skin Initial Vital Signs Initial Vital Signs: Vital Signs Temperature 97.1 F L 09/02/21 16:12 Pulse Oximetry 98 09/02/21 16:12 <Maru Whitmore DO - Last Filed: 09/03/21 08:57> Initial Vital Signs Initial Vital Signs: Vital Signs Temperature 97.1 F L 09/02/21 16:12 Pulse Oximetry 98 09/02/21 16:12 Course <ERIC Herndon - Last Filed: 09/02/21 18:56> Orders Ordered: Discontinued Medications Hydroxyzine Pamoate (Hydroxyzine Pamoate 25 Mg Capsule) 50 mg PO NOW ONE Stop: 09/02/21 18:04 Last Admin: 09/02/21 18:12 Dose: 50 mg Documented by: RSORQUIDEAE Vital Signs Vital signs: Vital Signs - 8 hr 09/02/21 16:12 09/02/21 17:12 09/02/21 18:29 Temperature 97.1 F L Pulse Rate 88 82 Respiratory Rate 18 27 H Blood Pressure 151/97 H 151/97 H Pulse Oximetry 98 97 09/02/21 18:30 Temperature Pulse Rate 78 Respiratory Rate 22 Blood Pressure Pulse Oximetry 97 <Maru Whitmore DO - Last Filed: 09/03/21 08:57> Orders Ordered: Discontinued Medications Hydroxyzine Pamoate (Hydroxyzine Pamoate 25 Mg Capsule) 50 mg PO NOW ONE Stop: 09/02/21 18:04 Last Admin: 09/02/21 18:12 Dose: 50 mg Documented by: RSORQUIDEAE Vital Signs Vital signs: Vital Signs - 8 hr 09/02/21 16:12 09/02/21 17:12 09/02/21 18:29 Temperature 97.1 F L Pulse Rate 88 82 Respiratory Rate 18 27 H Blood Pressure 151/97 H 151/97 H Pulse Oximetry 98 97 09/02/21 18:30 Temperature Pulse Rate 78 Respiratory Rate 22 Blood Pressure Pulse Oximetry 97 MDM - SOB/Dyspnea <ERIC Herndon - Last Filed: 09/02/21 18:56> Lab Data Attestation: I reviewed the patient's lab results. Result diagrams: 09/02/21 16:34 09/02/21 16:34 Labs: Lab Results 09/02/21 09/02/21 09/02/21 Range/Units 16:34 16:34 16:34 WBC 11.7 H (4.5-11.0) X10^3/uL RBC 4.93 (4.0-5.2) X10^6/uL Hgb 14.4 (12.0-16.0) g/dL Hct 43.3 (36-46) % MCV 88.0 (80-100) fL MCH 29.3 (26-34) PG MCHC 33.3 (30-36) % RDW 13.4 (11.6-14.8) % Plt Count 292 (150-400) X10^3/uL Neut % (Auto) 73.7 (50-75) % Lymph % (Auto) 20.6 L (25-40) % Gillespie % (Auto) 5.2 (3-14) % Eos % (Auto) 0.1 L (2-4) % Baso % (Auto) 0.4 (0-2) % Neut # (Auto) 8600 H (4682-4195) /uL Lymph # (Auto) 2400 (6760-3831) /uL Gillespie # (Auto) 600 (0-900) /uL Eos # (Auto) 0 (0-450) /uL Baso # (Auto) 0 (0-100) /uL PT 9.5 L (10.1-12.7) SECONDS INR 0.9 (0.9-1.3) APTT 24 L (26.4-36.2) SECONDS Sodium 138 (137-145) mmol/L Potassium 4.1 (3.4-5.1) mmol/L Chloride 106 (98-107) mmol/L Carbon Dioxide 19 L (22-32) mmol/L BUN 14 (7-17) mg/dL Creatinine 0.75 (0.52-1.04) mg/dL Estimated GFR > 60.0 (>60) mL/min BUN/Creatinine Ratio 18.7 (6-22) Glucose 120 H (70-100) mg/dL Calcium 9.6 (8.4-10.2) mg/dL Magnesium 2.1 (1.6-2.3) mg/dL Total Bilirubin 1.0 (0.2-1.3) mg/dL AST 35 (14-36) IU/L ALT 27 (<35) IU/L Alkaline Phosphatase 37 L (38-126) U/L Total Creatine Kinase 40 (30-135) U/L CK-MB (CK-2) TNP CK-MB (CK-2) Rel Index TNP Troponin I < 0.012 (0.01-0.034) ng/mL NT-Pro-B Natriuret Pep (<125) pg/mL Total Protein 7.2 (6.3-8.2) g/dL Albumin 4.4 (3.5-5.0) g/dL Globulin 2.8 (1.7-4.1) g/dL Albumin/Globulin Ratio 1.6 (1.0-2.8) Lipase 83 (23-300) U/L 09/02/21 Range/Units 16:34 WBC (4.5-11.0) X10^3/uL RBC (4.0-5.2) X10^6/uL Hgb (12.0-16.0) g/dL Hct (36-46) % MCV (80-100) fL MCH (26-34) PG MCHC (30-36) % RDW (11.6-14.8) % Plt Count (150-400) X10^3/uL Neut % (Auto) (50-75) % Lymph % (Auto) (25-40) % Gillespie % (Auto) (3-14) % Eos % (Auto) (2-4) % Baso % (Auto) (0-2) % Neut # (Auto) (5076-2125) /uL Lymph # (Auto) (1753-7583) /uL Gillespie # (Auto) (0-900) /uL Eos # (Auto) (0-450) /uL Baso # (Auto) (0-100) /uL PT (10.1-12.7) SECONDS INR (0.9-1.3) APTT (26.4-36.2) SECONDS Sodium (137-145) mmol/L Potassium (3.4-5.1) mmol/L Chloride (98-107) mmol/L Carbon Dioxide (22-32) mmol/L BUN (7-17) mg/dL Creatinine (0.52-1.04) mg/dL Estimated GFR (>60) mL/min BUN/Creatinine Ratio (6-22) Glucose (70-100) mg/dL Calcium (8.4-10.2) mg/dL Magnesium (1.6-2.3) mg/dL Total Bilirubin (0.2-1.3) mg/dL AST (14-36) IU/L ALT (<35) IU/L Alkaline Phosphatase (38-126) U/L Total Creatine Kinase (30-135) U/L CK-MB (CK-2) CK-MB (CK-2) Rel Index Troponin I (0.01-0.034) ng/mL NT-Pro-B Natriuret Pep 58 (<125) pg/mL Total Protein (6.3-8.2) g/dL Albumin (3.5-5.0) g/dL Globulin (1.7-4.1) g/dL Albumin/Globulin Ratio (1.0-2.8) Lipase (23-300) U/L Point of Care Testing Test Results Negative Urine Dip Bedside Urine Glucose Negative Bedside Urine Bilirubin - Negative Bedside Urine Ketone - Negative Urine Specific Marana 1.010 Bedside Urine Occult Blood - Negative Bedside Urine pH 6.5 Bedside Urine Protein - Negative Bedside Urine Urobilinogen - Negative Bedside Urine Nitrite - Negative Bedside Urine Leukocytes - Negative Esterase Imaging Data CT scan - chest: Radiologist's Impression: [address] [place] [id number] [address] Scan Report Signed Patient: Linn Olvera MR#: [id number] : 1975 Acct:[id number] Age/Sex: 46 / F Date of Service: 09/02/21 Loc: ED Accession Number: [id number] ?? Procedure: CT angio chest PE protocol Ordering Provider: Ciara [facility]D.W[facility]:? CT ANGIO CHEST PE PROTOCOL ? INDICATIONS:? Short of breath, recent COVID ? TECHNIQUE:? After the administration of intravenous contrast, 2 mm thick sections acquired from the pulmonary apices to the posterior costophrenic angles.? 3-dimensional maximum intensity projection (MIP) coronal and sagittal reformats were then acquired through the thorax.? For radiation dose reduction, the following was used:? automated exposure control, adjustment of mA and/or kV according to patient size.? ? COMPARISON:? None. ? FINDINGS:? Image quality:? Excellent.? ? Pulmonary arteries:? Pulmonary arteries are normal in size, and demonstrate no intraluminal filling defects to suggest central pulmonary embolism.? ? Lungs and pleura:? Lungs are clear.? No pleural effusions or pneumothorax.? Central and peripheral airways are patent.? ? Mediastinum:? Heart size is normal, without pericardial effusion.? No mediastinal or hilar adenopathy.? Thoracic aorta is normal in caliber and enhancement.? Esophagus is normal in caliber.? There is a small hiatal hernia.? ? Bones and chest wall:? No suspicious bony lesions.? Ribs and thoracic spine appear intact throughout.? Thyroid gland demonstrates no significant abnormality.? No axillary or supraclavicular adenopathy.? ? Abdomen:? Visualized upper abdominal solid organs appear normal in the early arterial phase of enhancement.? ? IMPRESSION:? Negative for pulmonary embolism.? ? No focal infiltrates are seen.? No significant pulmonary abnormality is seen. ? ? Incidental note is made of: Small hiatal hernia ? Dictated by: Cm Caal M.D. on 09/02/2021 at 16:36 ? ? Approved by: Cm Caal M.D. on 09/02/2021 at 16:37 ? MDM Narrative Medical decision making narrative: the patient is a 46-year-old female recently diagnosed with COVID who presents with a chief complaint of worsening shortness of breath and concerned about a PE. She is oxygenating well, and in no acute distress. Given her risk factors, did get a CT to rule out PE which resulted negative. She has no focal infiltrates, is noted to have a small hiatal hernia. the patient did state that she was feeling very anxious, I did give her a dose of hydroxyzine and she felt much improved. I did give her a small prescription thereof. Signs have been stable, oxygenating well, no acute distress throughout her stay in the ER. She requesting go home. I discussed at length follow up with primary care provider in the next few days as well as return to emergency department for any acute concerns. Patient has no questions or concerns upon discharge states understanding return precautions as well as follow-up care. <Maru Whitmore, DO - Last Filed: 09/03/21 08:57> Lab Data Labs: Lab Results 09/02/21 09/02/21 09/02/21 Range/Units 16:34 16:34 16:34 WBC 11.7 H (4.5-11.0) X10^3/uL RBC 4.93 (4.0-5.2) X10^6/uL Hgb 14.4 (12.0-16.0) g/dL Hct 43.3 (36-46) % MCV 88.0 (80-100) fL MCH 29.3 (26-34) PG MCHC 33.3 (30-36) % RDW 13.4 (11.6-14.8) % Plt Count 292 (150-400) X10^3/uL Neut % (Auto) 73.7 (50-75) % Lymph % (Auto) 20.6 L (25-40) % Gillespie % (Auto) 5.2 (3-14) % Eos % (Auto) 0.1 L (2-4) % Baso % (Auto) 0.4 (0-2) % Neut # (Auto) 8600 H (0464-2210) /uL Lymph # (Auto) 2400 (7996-3393) /uL Gillespie # (Auto) 600 (0-900) /uL Eos # (Auto) 0 (0-450) /uL Baso # (Auto) 0 (0-100) /uL PT 9.5 L (10.1-12.7) SECONDS INR 0.9 (0.9-1.3) APTT 24 L (26.4-36.2) SECONDS Sodium 138 (137-145) mmol/L Potassium 4.1 (3.4-5.1) mmol/L Chloride 106 (98-107) mmol/L Carbon Dioxide 19 L (22-32) mmol/L BUN 14 (7-17) mg/dL Creatinine 0.75 (0.52-1.04) mg/dL Estimated GFR > 60.0 (>60) mL/min BUN/Creatinine Ratio 18.7 (6-22) Glucose 120 H (70-100) mg/dL Calcium 9.6 (8.4-10.2) mg/dL Magnesium 2.1 (1.6-2.3) mg/dL Total Bilirubin 1.0 (0.2-1.3) mg/dL AST 35 (14-36) IU/L ALT 27 (<35) IU/L Alkaline Phosphatase 37 L (38-126) U/L Total Creatine Kinase 40 (30-135) U/L CK-MB (CK-2) TNP CK-MB (CK-2) Rel Index TNP Troponin I < 0.012 (0.01-0.034) ng/mL NT-Pro-B Natriuret Pep (<125) pg/mL Total Protein 7.2 (6.3-8.2) g/dL Albumin 4.4 (3.5-5.0) g/dL Globulin 2.8 (1.7-4.1) g/dL Albumin/Globulin Ratio 1.6 (1.0-2.8) Lipase 83 (23-300) U/L 09/02/21 Range/Units 16:34 WBC (4.5-11.0) X10^3/uL RBC (4.0-5.2) X10^6/uL Hgb (12.0-16.0) g/dL Hct (36-46) % MCV (80-100) fL MCH (26-34) PG MCHC (30-36) % RDW (11.6-14.8) % Plt Count (150-400) X10^3/uL Neut % (Auto) (50-75) % Lymph % (Auto) (25-40) % Gillespie % (Auto) (3-14) % Eos % (Auto) (2-4) % Baso % (Auto) (0-2) % Neut # (Auto) (8215-3019) /uL Lymph # (Auto) (6321-5494) /uL Gillespie # (Auto) (0-900) /uL Eos # (Auto) (0-450) /uL Baso # (Auto) (0-100) /uL PT (10.1-12.7) SECONDS INR (0.9-1.3) APTT (26.4-36.2) SECONDS Sodium (137-145) mmol/L Potassium (3.4-5.1) mmol/L Chloride (98-107) mmol/L Carbon Dioxide (22-32) mmol/L BUN (7-17) mg/dL Creatinine (0.52-1.04) mg/dL Estimated GFR (>60) mL/min BUN/Creatinine Ratio (6-22) Glucose (70-100) mg/dL Calcium (8.4-10.2) mg/dL Magnesium (1.6-2.3) mg/dL Total Bilirubin (0.2-1.3) mg/dL AST (14-36) IU/L ALT (<35) IU/L Alkaline Phosphatase (38-126) U/L Total Creatine Kinase (30-135) U/L CK-MB (CK-2) CK-MB (CK-2) Rel Index Troponin I (0.01-0.034) ng/mL NT-Pro-B Natriuret Pep 58 (<125) pg/mL Total Protein (6.3-8.2) g/dL Albumin (3.5-5.0) g/dL Globulin (1.7-4.1) g/dL Albumin/Globulin Ratio (1.0-2.8) Lipase (23-300) U/L Point of Care Testing Test Results Negative Urine Dip Bedside Urine Glucose Negative Bedside Urine Bilirubin - Negative Bedside Urine Ketone - Negative Urine Specific Marana 1.010 Bedside Urine Occult Blood - Negative Bedside Urine pH 6.5 Bedside Urine Protein - Negative Bedside Urine Urobilinogen - Negative Bedside Urine Nitrite - Negative Bedside Urine Leukocytes - Negative Esterase Discharge Plan Departure Patient Disposition: Home Clinical Impression: Shortness of breath, Hernia, hiatal Instructions: Hiatal Hernia, DI for Anxiety -- Adult, DI for Shortness of Breath Activity Restrictions/Additional Instructions: Thank you for trusting us with your care today. As discussed, your CT shows no evidence of a pulmonary embolism. Please follow-up with primary care provider in the next few days. Please come back to the emergency department for any acute concerns. As discussed, you responded very well to hydroxyzine, which is a medication for anxiety. I sent a small prescription of this to [facility] in [place]. Please do not take this with Benadryl as this is a similar medication. Prescriptions: New hydroxyzine HCl 50 mg tablet 50 mg PO TID PRN (Reason: anxiety) Qty: 10 RF: 0 No Action norethindrone ac-eth estradiol [June11/12 ()] 1 MG/20 MCG tablet 1 tab PO QDAY Qty: 30 RF: 3 hydroxychloroquine 200 mg tablet 200 mg PO DAILY RF: 0 prednisolone 5 mg tablet 5 mg PO DAILY RF: 0 leflunomide 20 mg tablet 20 mg PO DAILY RF: 0 lamotrigine 200 mg tablet 200 mg PO DAILY RF: 0 duloxetine 40 mg capsule, delayed rel sprinkle 40 mg PO DAILY RF: 0 acyclovir 400 mg tablet 400 mg PO BID RF: 0 acetaminophen [Tylenol] 325 mg capsule 650 mg PO QID PRN (Reason: pain) Qty: 60 RF: 0 dibucaine 1 % ointment 1 applictn PA QID PRN (Reason: rectal discomfort) Qty: 56.7 RF: 0 Referrals: Aldair Aiken MD [Primary Care Provider] - <Maru Whitmore DO - Last Filed: 09/03/21 08:57> Cosign ED Attending Coscalvinature Attestation: I was immediately available in the department for consultation. Documentation has been reviewed. I agree with assessment and plan.
== END 2021-09-02 19:27 | disposition home or self-care (01) ==
PROVIDERS: Emergency Medicine; Emergency Provider Nurse Practitioner Family; Family Provider Family Medicine; PCP Family Medicine
DX: R06.02 Shortness of breath (principal); K44.9 Diaphragmatic hernia without obstruction or gangrene; R07.9 Chest pain, unspecified; F41.9 Anxiety disorder, unspecified
CPT/HCPCS: 36415; 71275; 80053; 81003; 81025; 82550; 83690; 83735; 83880; 84484; 85025; 85610; 85730; 93005; 93010; 99284; Q9967

== ENCOUNTER → 2021-09-11 11:41 | Outpatient (CLI) | payer OTHER, SELFPAY ==
[2021-09-11 14:23] LABS: COVID19 -Nasal RAPID Negative (Negative)
== END ==
PROVIDERS: Family Provider Family Medicine; PCP Family Medicine; Visit Provider Physician Assistant
DX: Z20.822 Contact with and (suspected) exposure to COVID-19 (principal)
CPT/HCPCS: 87635

== ENCOUNTER → 2021-09-23 09:47 | Outpatient (CLI) | payer OTHER, SELFPAY ==
[2021-09-23 12:52] LABS: COVID19 -Nasal RAPID Negative (Negative)
== END ==
PROVIDERS: Family Provider Family Medicine; PCP Family Medicine; Visit Provider Physician Assistant
DX: Z20.822 Contact with and (suspected) exposure to COVID-19 (principal)
CPT/HCPCS: 87635

== ENCOUNTER 2021-09-24 12:18 | Day surgery (SDC) | payer OTHER, SELFPAY ==
[2021-09-15 10:59] VITALS: BMI 27.6
[2021-09-24] VITALS (12 sets, daily range): BP systolic 129–157; BP diastolic 83–102; PULSE 105–125; RESP 13–20; TEMP 36.6–36.9; O2SAT 91–98; BMI 27.6
--- NOTE | 2021-09-24 | DI.RAD.S_ITS ---
PROCEDURE: XR CERVICAL SPINE 2V OR 3V INDICATIONS: C5-6 ACDF TECHNIQUE: 2 intraoperative fluoroscopic view(s) of the cervical spine were acquired. COMPARISON: None. FINDINGS: Intraoperative fluoroscopic images of cervical spine shows anterior fusion of C5 and C6 vertebral bodies with intervertebral spacer placement. IMPRESSION: Fluoro guidance was provided intraoperatively for anterior fusion at C5-6 level. Dictated by: Tanner Florez M.D. on 09/24/2021 at 16:40 Approved by: Tanner Florez M.D. on 09/24/2021 at 16:46
--- NOTE | 2021-09-24 13:42 | PM.PREOP ---
Pre-operative Note COVID-19 COVID-19 status: Negative Result date/Date tested (Pos, Neg/Pending): 09/22/21 Interval Note History & Physical reviewed/Exam performed by Physician: Yes Changes to H&P: No
[2021-09-24] MEDS: CEFAZOLIN 2 GM/20 ML SYRINGE IV (14:30)
[2021-09-24] MEDS: SCOPOLAMINE 1 PATCH TOP (14:30)
--- NOTE | 2021-09-24 14:54 | SUR.OPER ---
Supine, head on gel donut. Arms padded with gel pads, tucked at sides, towel roll under shoulders. Safety belt at thigh. Legs uncrossed. Tape from shoulders to foot of bed to provide traction downward of shoulders
[2021-09-24] MEDS: BUPIVACAINE 0.25% (PF) 30 ML, EPINEPHrine 0.15 MG INJ (15:02)
--- NOTE | 2021-09-24 16:11 | P.OP_ITS ---
Operative Date/Time/Diagnoses Date of procedure: 09/24/21 Time of procedure: 14:30 Pre-op diagnosis: 1. C5-6 spinal stenosis 2. C5-6 radiculopathy Post-op diagnosis: same Procedure & Clinicians Procedure: 1. C5-6 anterior cervical diskectomy and fusion 2. C5-6 anterior interbody cage placement 3. C5-6 anterior instrumentation with plate and screw placement in C5 and C6 vertebrae 4. Utilization of microsurgical technique and operating microscope Same procedure as scheduled: Yes Indications: Patient has been having chronic neck pain and worsening cervical radiculopathy. Patient failed multiple conservative management with worsening pain weakness and numbness in her upper extremity. Patient has been having difficulty performing activity of daily living. After discussing risks benefits of treatment options, patient elected proceed with surgery. Surgeon: Becca Carrillo Student Services Vice President: Rashmi Batista Click Yes if Unassisted: No Anesthesia Type: General Operative Notes Closure Type: primary Specimen(s): none sent Prosthetic devices, grafts, tissues, transplants, or devices: Globus Extend Plate, PEEK cage Estimated Blood Loss (mL): 5 Blood products transfused: none Procedure in detail: Patient was seen in the preoperative area. Risks and benefits of the surgery was discussed with the patient. Informed consent was obtained from the patient and placed in the chart. Surgical site was marked. Patient was taken to the op erative room. General anesthesia was administered. Prophylactic antibiotic was given to the patient less than 30 min before the incision was made. Patient was placed into a supine position on a radiolucent table. Patient's shoulders were taped down to allow proper C-arm imaging. Anterior cervical area was prepped and draped in a sterile fashion. Time-out was performed at this time. Using lateral C-arm imaging, the level between C5 and C6 was identified and marked on patient's neck. A oblique incision from midline towards medial border of sternocleidomastoid muscle was made. The platysma muscle was incised in line with skin incision. Metzenbaum scissor was used to develop the plane between the medial border of sternocleidomastoid d and the strap muscles medially. The carotid sheath and its contents were identified and protected behind the hand- held retractor during the entire case. The plane between the carotid sheath and strap muscles was developed with Metzenbaum scissors. Dissection was made down to the level of the anterior cervical fascia. Longus colli muscle was incised on the anterior aspect of vertebral bodies bilaterally from C5-C6. Spinal needle was placed into the C5-6 disc space and confirmed with lateral C-arm imaging. Using microsurgical technique and operative microscope, anterior cervical diskectomy was performed at C5-6 level. This was done by removing the disc material, removing the anterior and posterior osteophytes posterior longitudinal ligaments along with performing bilateral foraminotomies at the C5-6 levels. Patient was found to have severe foraminal stenosis. Patient's stenosis was fully decompressed after decompression was completed. After the diskectomy was completed, an anterior interbody cage was obtained. The cage was packed with globus via cell bone grafting material. One cage each along with the bone grafting material was then packed into the interbody space at C5-6 along with an anterior cervical plate. The cervical plate was stabilized to the C5-C6 vertebrae using screws. After confirming placement of the hardware with AP and lateral C-arm imaging, the screws were locked into the plate using the locking mechanism and torque limiting screwdriver. After the hardware was placed and confirmed with AP and lateral C-arm imaging, the wound was irrigated with sterile normal saline. The platysma muscle and the subcutaneous tissue was closed with 2-0 Vicryl. The skin was closed with 4-0 Monocryl and Steri-Strips. Patient tolerated the procedure well. Patient was transferred recovery room in stable condition. There were no complications. Complications: none Post-operative Condition: stable Disposition: PACU Plan for aftercare: Discharge to home
[2021-09-24] MEDS: HYDROMORPHONE 2 MG INJ IV ×4 (16:36→17:03)
[2021-09-24] MEDS: GABAPENTIN 300 MG CAPSULE PO ×2 (16:48)
[2021-09-24] MEDS: HYDROMORPHONE 2 MG TABLET PO (16:56)
[2021-09-24] MEDS: SODIUM CHLORIDE 0.9% 1,000 ML 100 ML IV (17:41)
--- NOTE | 2021-09-24 17:59 | PC.NURSE ---
Day shift: Pt on unit from PACU at approx 1730, SHe is A&Ox4. SCD's tolerated. She is calm and cooperative. Oriented to room and call light. HR tachy 105. 2L NC 94%. CMS intact. Dressing on neck is CDI. Soft collar in place and tolerated. Agrees to not get OOB w/o help from staff. Will continue w/ post-op plan of care.
[2021-09-24] MEDS: HYDROMORPHONE 0.5 MG INJ 0.2 MG IV ×2 (20:07→23:46)
[2021-09-24] MEDS: hydrOXYzine pamoate 25 MG CAPSULE PO ×2 (20:09→23:46)
[2021-09-24] MEDS: ACETAMINOPHEN 325 MG TABLET 650 MG PO (20:09)
[2021-09-24] MEDS: DULOXETINE 30 MG CAPSULE PO (20:09)
[2021-09-24] MEDS: DOCUSATE 100 MG CAPSULE PO (20:09)
[2021-09-24] MEDS: SENNOSIDES 8.6 MG TABLET 17.2 MG PO (20:10)
[2021-09-24] MEDS: CLINDAMYCIN 600 MG/50 ML PIGGYBACK 50 MG IV (21:30)
[2021-09-25 00:03] VITALS: BP 147/91; PULSE 103; RESP 18; TEMP 36.8; O2SAT 93
[2021-09-25] MEDS: SODIUM CHLORIDE 0.9% 1,000 ML 100 ML IV (03:52)
[2021-09-25 04:00] VITALS: BP 138/92; PULSE 114; RESP 17; TEMP 36.7; O2SAT 94
[2021-09-25] MEDS: HYDROMORPHONE 0.5 MG INJ 0.2 MG IV (04:11)
[2021-09-25] MEDS: CLINDAMYCIN 600 MG/50 ML PIGGYBACK 50 MG IV (06:03)
[2021-09-25] MEDS: DULOXETINE 30 MG CAPSULE PO (08:39)
[2021-09-25] MEDS: GABAPENTIN 300 MG CAPSULE PO (08:39)
[2021-09-25] MEDS: DOCUSATE 100 MG CAPSULE PO (08:39)
[2021-09-25] MEDS: lamoTRIgine 100 MG TABLET 200 MG PO (08:40)
[2021-09-25] MEDS: TRAMADOL 50 MG TABLET PO ×2 (08:40→12:14)
[2021-09-25] MEDS: ACETAMINOPHEN 325 MG TABLET 650 MG PO (08:42)
[2021-09-25 08:45] VITALS: BP 143/93; PULSE 110; RESP 16; TEMP 36.9; O2SAT 94
--- NOTE | 2021-09-25 09:44 | P.DS_ITS ---
History of Present Illness History of Present Illness Date Patient Seen: 09/25/21 Time Patient Seen: 09:45 Chief complaint: Neck pain Narrative: Pain is been mild at rest more moderate to severe with movement. Denies fever or chills. No shortness of breath or chest pain. Patient has no difficulty swallowing liquids she notes that if he takes small bites of solid food she is able to swallow it easier than with a large bite. Discharge Providers Provider Discharge Date: 09/25/21 Primary care physician: Aldair Aiken MD Consults: 09/15/21 11:41 Consult to Anesthesiology Routine Comment: Consulting Provider: Anesthesiologist Reason for consultation: PAC courtesy re: COVID + 08/12/21 09/24/21 17:19 Consult to Occupational Therapy Evaluate & Treat Comment: Physician Instructions: Evaluate and treat Consult to Physical Therapy Evaluate & Treat Comment: Physician Instructions: Evaluate and Treat Discharge provider: Jermaine Borrego PA-C Summary Hospital Course Discharge Diagnosis: 1. C5-6 spinal stenosis 2. C5-6 radiculopathy Hospital Course: 1.? C5-6 anterior cervical diskectomy and fusion 2. C5-6 anterior interbody cage placement 3.? C5-6 anterior instrumentation with plate and screw placement in C5 and C6 vertebrae 4.? Utilization of microsurgical technique and operating microscope Same procedure as scheduled: Yes Indications: Patient has been having chronic neck pain and worsening cervical radiculopathy. Patient failed multiple conservative management with worsening pain weakness and numbness in her upper extremity.? Patient has been having difficulty performing activity of daily living.? After discussing risks benefits of treatment options, patient elected proceed with surgery. Surgeon: Becca Carrillo Line Inspector: Rashmi Batista Click Yes if Unassisted: No Anesthesia Type: General Operative Notes Closure Type: primary Specimen(s): none sent Prosthetic devices, grafts, tissues, transplants, or devices: Globus Extend Plate, PEEK cage Estimated Blood Loss (mL): 5 Blood products transfused: none Patient admitted to the hospital for the above-mentioned procedure. Patient consented to the same. Patient taken to the operating room underwent surgery on September 24, 2021. Patient back in her room recovering well as in stable condition. Patient will be discharged home after physical therapy if safe for home environment. Exam Vital Signs (past 8 hours): - 09/25/21 04:00 Temperature 98.1 F Pulse Rate 114 H Respiratory Rate 17 Blood Pressure 138/92 H Pulse Oximetry 94 Oxygen Delivery Method Nasal Cannula Oxygen Flow Rate 0 Narrative Exam Narrative: Pleasant 46-year-old female resting comfortably in bedside chair finishing breakfast. Patient no apparent distress. Cervical dressing is Clean, dry, intact.. Motor functions intact bilateral upper extremities. Sensation grossly intact to light touch bilateral upper extremities. [facility] Medical History Anesthesia complication Anxiety Asthma Bipolar 2 disorder Celiac disease Constipation COVID-19 virus infection (08/12/21) Depression Dog bite of hand (12/2008) Fibromyalgia GERD (gastroesophageal reflux disease) Headache, migraine IBS (irritable bowel syndrome) Surgical History History of ankle surgery (03/2019) History of sacrocolpopexy (05/2021) Hx of appendectomy (10/2012) Hx of hemorrhoidectomy (12/18/19) Hx of laparoscopy (03/2017) Hx of removal of cyst (1997) Hx of tonsillectomy (2016) Status post endoscopy Status post excision of lipoma (09/2016) Status post laparoscopy (03/26/16) Status post loop electrosurgical excision procedure (LEEP) of cervix Family History Brother Age: 47 Cancer Father Age: 72 Cancer Heart disease Hypertension High cholesterol Mental health problem Grandfather Heart disease Hypertension Stroke Grandmother Cancer Mother Age: 69 Hypertension Grandmother Heart disease Hypertension Social History household members: family and children Smoking Status: Never smoker alcohol intake: current Discharge Assessment & Plan Assessment and Plan Assessment: Patient progressing as expected status post cervical fusion Plan of Treatment: Discharge home today in stable condition after physical therapy if safe for home environment Discharge Plan Discharge Plan Patient Disposition: Home Discharge orders & Medications Discharge Orders: Discharge (Order); Ordered 09/25/21 Ordered By: Jermaine Borrego Prescriptions: New acetaminophen 325 mg Tablet 650 mg PO Q6HR PRN (Reason: Pain, Mild (1-3)) Qty: 60 0RF tramadol 50 mg Tablet 50 mg PO Q4HR PRN (Reason: Pain, Moderate (4-6)) Qty: 60 0RF docusate sodium 100 mg Capsule 100 mg PO BID Qty: 20 0RF hydroxyzine pamoate 25 mg Capsule 25 mg PO Q4HR PRN (Reason: Nausea And Vomiting) Qty: 30 0RF hydromorphone [Dilaudid] 2 mg tablet 2 mg PO Q6H PRN (Reason: pain) Qty: 20 0RF Rx Instructions: Take 1 tablet every 6 hours as needed for breakthrough pain Continued norethindrone ac-eth estradiol [11/12 (21)] 1 MG/20 MCG tablet 1 tab PO QDAY Qty: 30 3RF lamotrigine 200 mg tablet 200 mg PO DAILY 0RF acyclovir 400 mg tablet 400 mg PO DAILY 0RF gabapentin 300 mg Capsule 300 mg PO TID 0RF duloxetine 30 mg Capsule,Delayed Release(Dr/Ec) 30 mg PO BID 0RF Humira See Rx Instructions .ROUTE .COMPLEX 0RF Rx Instructions: pt does not know dose . Pt states she takes it every two weeks Discontinued acetaminophen [Tylenol] 325 mg capsule 650 mg PO QID PRN (Reason: pain) Qty: 60 0RF Follow up/Referrals: Becca Carrillo MD [Physician] - (2 weeks) Aldair Aiken MD [Primary Care Provider] - Diet/Activity/Treatments Diet: Diet as Tolerated and Regular Activity: Limit neck bending and twisting Other treatments: Soft collar for comfort Skin/Wound/Dressing Care Report to your healthcare provider any signs of infection, such as:: chills, fever, night sweats, unusual drainage and unusual redness Dressing: Keep dressing clean dry intact May shower with dressing kept clean and dry Visit Report/Discharge Packet Instructions: DI for Anterior Cervical Discectomy and Fusion Stand Alone Forms: Surgery Discharge Discharge Data Primary Care Provider: Aldair Aiken Attending Provider: Becca Carrillo Quality VTE Deep Vein Thrombosis/Pulmonary Embolism Present on Admission: No
--- NOTE | 2021-09-25 10:05 | OT.IP.EVAL ---
Current Diagnoses Other spondylosis with radiculopathy, cervical region (09/24/21) Spinal stenosis, cervical region (09/24/21) Surgery Performed Operation Date: 09/24/21 13:45 Actual Procedures p C5-6 ACDF - Becca Carrillo MD Past Medical History (Last Reviewed 09/25/21 @ 09:46 by Jermaine Borrego PA-C) Anesthesia complication Anxiety Asthma Bipolar 2 disorder Celiac disease Constipation COVID-19 virus infection (08/12/21) Depression Dog bite of hand (12/2008) Fibromyalgia GERD (gastroesophageal reflux disease) Headache, migraine History of ankle surgery (03/2019) History of sacrocolpopexy (05/2021) Hx of appendectomy (10/2012) Hx of hemorrhoidectomy (12/18/19) Hx of laparoscopy (03/2017) Hx of removal of cyst (1997) Hx of tonsillectomy (2016) IBS (irritable bowel syndrome) Status post excision of lipoma (09/2016) Surgical History (Last Reviewed 09/25/21 @ 09:46 by Jermaine Borrego PA-C) History of ankle surgery (03/2019) History of sacrocolpopexy (05/2021) Hx of appendectomy (10/2012) Hx of hemorrhoidectomy (12/18/19) Hx of laparoscopy (03/2017) Hx of removal of cyst (1997) Hx of tonsillectomy (2016) Status post endoscopy Status post excision of lipoma (09/2016) Status post laparoscopy (03/26/16) Status post loop electrosurgical excision procedure (LEEP) of cervix Occupational Therapy Inpatient Evaluation/Re-Eval M1 PT/OT-IP Prior Functional Status Start: 09/25/21 10:57 Freq: NEEDED Status: Active Protocol: Document 09/25/21 09:30 [facility] (Rec: 09/25/21 11:10 [facility] [id number]) Medical Review Prior Functional Status Medical History Reviewed Yes Communication Independent Mobility and Gait Independent and did not use a device. Activities of Daily Living and IADL's Able to do ADL and IADl needs with pain and at times increased time. Social History Household Members family,children Living Arrangements House Number of Floors (Floors) One Floor Number of Stairs To Enter/Railing? 3 steps with bilateral rails to enter. Home Environment Standard Height Toilet,Walk in Shower,Tub/Shower Home Equipment Straight Cane,Manual Wheelchair,Hand Held Shower, Director Learning Services,Grab Bars In Shower Additional Social History Comment Pt's mother and kids to be able to assist pt at home for all needs. M2 OT-IP Current Condition Start: 09/25/21 10:57 Freq: Status: Active Protocol: Document 09/25/21 09:30 [facility] (Rec: 09/25/21 11:10 [facility] [id number]) Occupational Therapy Current Condition Current Condition Evaluation Date 09/25/21 Treatment Diagnosis S/P C5-6 ACDF Diagnosis Onset Date 09/24/21 Post Operative Precautions Cervical Spine Precautions Soft Collar for Comfort,No Heavy Lifting,Log Roll M3 OT- IP Subjective and Pain Start: 09/25/21 10:57 Freq: Status: Active Protocol: Document 09/25/21 09:30 [facility] (Rec: 09/25/21 11:10 [facility] [id number]) OT- Subjective Occupational Therapy Visit Type Type Initial Evaluation Visit Start Time 09:30 Visit Stop Time 10:05 Total Visit Minutes 35 Occupational Therapy Visit Comments Patient Comments Pt agreed to get up for OT eval. Patient/Caregiver Goals To go home. OT Pain Assessment Pain When Pain Assessed During Mobility Pain Present Pain Present Pain Reported Location Medial Neck Intensity 6 Scale Used Numeric (0 - 10) M4 OT- IP ADL's Start: 09/25/21 10:57 Freq: Status: Active Protocol: Document 09/25/21 09:30 [facility] (Rec: 09/25/21 11:10 [facility] [id number]) OT ADL-Grooming General Evaluation Grooming Ability Independent Areas Needing Assistance Retrieving/Set-up of Grooming Items Comments OT Grooming Comments Able to do while standing. OT ADL-Oral Care General Eval Oral Care Ability Independent Comments Oral Care Comments Independent after initial education to spit into a cup to best follow her cervical precautions. OT ADL-Dressing General Eval Lower Body Dressing Ability Standby Assistance Comments OT Dressing Comments Pt able to comfortable jewels/ doff socks while seated and close SBA while standing to jewels brief over her hips. Pt able to jewels/doff the soft collar independently. OT ADL-Toileting General Evaluation Toileting Ability Independent OT ADL-Bathing Comments OT Bathing Comments Not performed. Pt states may get shower stool/chair and just move her mom's HHSP to her bathroom which has a a walk in shower. M5 OT- IP IADL's Start: 09/25/21 10:57 Freq: Status: Active Protocol: Document 09/25/21 09:30 [facility] (Rec: 09/25/21 11:10 [facility] [id number]) OT-Instrumental Activities of Daily Living Deficits IADL Deficits Identified Deficits Home Safety Awareness Awareness of Need for Assistance at Home Good Awareness Ability to Problem Solve Emergency Able to Problem Solve Situations Medication Management Medication Management Comments Pt's mom to provide supervision and assist as needed. M6 OT- IP Functional Cognition Start: 09/25/21 10:57 Freq: Status: Active Protocol: Document 09/25/21 09:30 [facility] (Rec: 09/25/21 11:10 [facility] [id number]) Cognitive Factors Limiting Selfcare Function Cognitive Ability Level of Alertness Alert Patient Orientation Name,Place,Situation Attention Span Ability Capable of Focused Attention, Capable of Sustained Attention Ability to Follow Commands Able to Follow One Step Commands Memory Description No Deficits Noted Safety Awareness Underestimates Need for Assistance Problem Solving Ability No deficits Noted Cognitive Comments Cognitive Assessment Comments Pt appears to be at baseline just needing initial education for cervical precautions for ADl and mobility needs. OT- Vision and Hearing OT- Hearing Assessment OT- Hearing Assessment WFL OT- Vision Assessment Visual Acuity Glasses All The Time M7 OT- IP Mobility and Balance Start: 09/25/21 10:57 Freq: Status: Active Protocol: Document 09/25/21 09:30 [facility] (Rec: 09/25/21 11:10 [facility] [id number]) OT- Bed Mobility Assessment Rolling Type of Rolling Roll to Left Level of Assistance Standby Assistance Supine to Sit Supine to Sit Assist Standby Assistance Sit to Supine Sit to Supine Assist Standby Assistance Scooting Scooting to Edge of Bed Standby Assistance Scooting Up and Down in Bed Standby Assistance OT-Transfer Assessment Sit to and From Stand Sit to and from Stand Standby Assistance Transfers Transfer Ability Standby Assistance Technique Transfer Destination Bed,Chair,Toilet Transfer Technique Stand Step Pivot Devices Transfer Assistive Devices None,Gait Belt Comments Mobility Comments Pt initially when standing needing use of surface to get to the bathroom. Pt states initially sleeps on her back at night and then unknowingly flips to her stomach. Suggested may be best to try to sleep in a recliner initially. Pt states also has a wedge she may try to use in bed as well. OT- Gait Assessment Comments Gait Ability Comments Close SBA while in the room on even surfaces. OT- Balance Assessment Sitting Balance and Reactions Static Sitting Balance Ability Good Dynamic Sitting Balance Ability Good Standing Balance and Reactions Static Standing Balance Ability Good Dynamic Standing Balance Ability Fair M8 OT- IP Objective Assessments Start: 09/25/21 10:57 Freq: Status: Active Protocol: Document 09/25/21 09:30 [facility] (Rec: 09/25/21 11:10 [facility] [id number]) OT-Muscle Tone Assessment Muscle Tone WNL Yes M9 OT- IP Assessment and Plan Start: 09/25/21 10:57 Freq: Status: Active Protocol: Document 09/25/21 09:30 [facility] (Rec: 09/25/21 11:10 [facility] [id number]) OT Summary Assessment and Plan Potential Rehabilitation Potential Good Analytic Complexity at Evaluation Low Summary OT Impairments Pain,Functional Mobility, Bathing,Shower Transfers Progress Towards Goals Progressing Toward Goals Assessment Summary Shower if still here. Goals Bathing Goal Independent Shower Transfer Goal Independent Patient/Caregiver Education Goal Demonstrate Post-Op Precautions Days to Meet Goals 1 Frequency of Treatment Frequency Of Treatment Once a Day Treatment Plan OT Treatment Plan ADL Training,Functional Mobility,Patient/Family Education,Discharge Planning Other Treatment Recommendations and Next Shower if still here Treatment Focus Discharge Recommendations OT Discharge Recommendations Home with Assistance Home Equipment Needs shower chair Transportation Needs at Discharge Private Vehicle
--- NOTE | 2021-09-25 10:35 | PT.IIE ---
Current Diagnoses Other spondylosis with radiculopathy, cervical region (09/24/21) Spinal stenosis, cervical region (09/24/21) Surgery Performed Operation Date: 09/24/21 13:45 Actual Procedures p C5-6 ACDF - Becca Carrillo MD Surgical History (Last Reviewed 09/25/21 @ 09:46 by Jermaine Borrego PA-C) Status post endoscopy Status post laparoscopy (03/26/16) Status post loop electrosurgical excision procedure (LEEP) of cervix Medical History (Last Reviewed 09/25/21 @ 09:46 by Jermaine Borrego PA-C) Anesthesia complication Anxiety Asthma Bipolar 2 disorder Celiac disease Constipation COVID-19 virus infection (08/12/21) Depression Dog bite of hand (12/2008) Fibromyalgia GERD (gastroesophageal reflux disease) Headache, migraine IBS (irritable bowel syndrome) Physical Therapy Inpatient Evaluation/Re-Eval M1 PT/OT-IP Prior Functional Status Start: 09/25/21 13:14 Freq: NEEDED Status: Discharge Protocol: Document 09/25/21 10:35 [facility] (Rec: 09/25/21 13:28 AB [id number]) Medical Review Prior Functional Status Medical History Reviewed Yes Communication ablet o make needs known Mobility and Gait pt stated that she is independent with all mobilities and ambulation without AD Social History Household Members family,children Living Arrangements House Number of Floors (Floors) Two Floors Number of Stairs To Enter/Railing? 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 M2 PT-IP Current Condition Start: 09/25/21 13:14 Freq: NEEDED Status: Discharge Protocol: Document 09/25/21 10:35 [facility] (Rec: 09/25/21 13:28 AB [id number]) Physical Therapy Current Condition Current Condition Evaluation Date 09/25/21 Treatment Diagnosis s/p C5-6 ACDF; difficulty in walking Onset Date 09/24/21 M3 PT-IP Subjective Start: 09/25/21 13:14 Freq: NEEDED Status: Discharge Protocol: Document 09/25/21 10:35 [facility] (Rec: 09/25/21 13:28 [id number]) Subjective Physical Therapy Visit Type Type Initial Evaluation Visit Start Time 10:35 Visit Stop Time 11:05 Total Visit Minutes 30 Number of QUILL PICKING MACHINE OPERATOR Visits 0 Physical Therapy Visit Comments Patient Comments pt is agreeable to do PT Therapy Pain Assessment Pain When Pain Assessed At Rest Pain Present Pain Present Pain Reported Location Neck Intensity 5 Scale Used Numeric (0 - 10) Pain Management Techniques Apply Cold,Distraction, Modification of Treatment,Re- positioning,Timing of Activity with Medications M4 PT-IP Mobility and Gait Start: 09/25/21 13:14 Freq: NEEDED Status: Discharge Protocol: Document 09/25/21 10:35 [facility] (Rec: 09/25/21 13:28 [id number]) PT-Bed Mobility Assessment Rolling Type of Rolling Log Rolling Level of Assist Standby Assistance Supine to Sit Supine to Sit Standby Assistance Sit to Supine Sit to Supine Standby Assistance PT-Transfer Assessment Sit to and From Stand Sit to and from Stand Standby Assistance,1 Person Assistance,Use of Upper Extremities Equipment Transfer Assistive Device None,Gait Belt Orthotic/Prosthetic Devices or Brace: Yes Transfers Transfer Destination Chair Transfer Technique Stand Step Pivot Transfer Ability Level of Assist Standby Assistance Comments Mobility Comments reviewed cervical precautions with pt. pt completed sit to stand SBA from chair and ambulated without AD ~ 150 ft SBA to CGA. (+) LOB and unsteady gait and pt stated that she feels lightheaded due to her medication. BP: 144/65 . pt completed up/down stairs using B rails SBA and then completed using just R rail SBA. ambulated back to her room without AD. pt sat on chair. educated pt on safety and agreed to use SPC for ambulation at this time. assessed ambulation using SPC and pt completed SBA. pt is more stable with ambulation. pt sat back on the chair and positioned. call light and table placed within reach. ice pack provided. Gait Assessment Gait Gait Assistance Required: Standby Assistance,Contact Guard Assist Distance (Feet) 150 Able to Maintain Weight Bearing Status Yes During Gait Assistive Devices Assistive Device None,Gait Belt,Straight Cane Orthotic/Prosthetic Devices or Brace: Yes Gait Deviations General Gait Pattern Ataxic,Decreased Stride Length ,Decreased Feet Clearance,Step -to Gait Factors Limiting Gait Function Factors Limiting Gait Function Decreased Activity Tolerance, Decreased Strength,Limited Range of Motion,Pain,Poor Balance Comments Gait Comments pls refer to mobility section for details Stair Climbing Assessment Evaluation Level of Assist On Stairs Standby Assistance Devices Stair Climbing Assistive Devices Left Railing,Right Railing Technique/Endurance Stair Climbing Direction Ascend and Descend Stair Climbing Technique Step Over Step,Step to Step Number of Steps Climbed 3 Query Text: Stair Climbing Set # Repetitions (reps) 3 Comments Stair Climbing Comments pls refer to mobility section for details PT-Balance Assessment Sitting Balance and Reactions Static Sitting Balance Ability Good Dynamic Sitting Balance Ability Good Standing Balance and Reactions Static Standing Balance Ability Fair Dynamic Standing Balance Ability Fair Device Used without AD M5 PT-IP Objective Assessments Start: 09/25/21 13:14 Freq: NEEDED Status: Discharge Protocol: Document 09/25/21 10:35 [facility] (Rec: 09/25/21 13:28 AB [id number]) Orientation Orientation/Cognition Level of Alertness Alert Orientation Name,Place,Situation Language Function Ability No Deficits Noted Safety Awareness Understands Safety Issues Memory Description No Deficits Noted Gross Range of Motion Lower Extremity ROM Assessment Within Functional Limits Strength Lower Extremity Strength Assessment Within Functional Limits Coordination Assessment Gross Coordination Gross Coordination WNL Sensation Assessment Sensation Gross Sensation WNL Muscle Tone Muscle Tone WNL Yes M6 PT-IP Treatment Start: 09/25/21 13:14 Freq: NEEDED Status: Discharge Protocol: Document 09/25/21 10:35 [facility] (Rec: 09/25/21 13:28 AB [id number]) Physical Therapy Treatment Education Education Provided Precautions,Weight Bearing Status,Post-Op Packet,Safety M7 PT-IP Assessment and Plan Start: 09/25/21 13:14 Freq: NEEDED Status: Discharge Protocol: Document 09/25/21 10:35 [facility] (Rec: 09/25/21 13:28 AB [id number]) PT Summary Assessment and Plan Potential Rehabilitation Potential Good Status of Condition at Evaluation Stable Summary Impairments Pain,ROM,Strength,Balance, Coordination,Sensation,Tone, Cognition,Bed Mobility, Transfers,Gait,Activity Tolerance Assessment Summary Pt requiring SBA to CGA with mobility. recommending use of SPC for ambulation at this time for steadiness and pt agreed. pt has her mom to assist her as needed. pt may go home when medically stable. Goals Bed Mobility Goal Independent Transfer Goal Independent,Cane Gait Goal Independent,Cane Gait Distance 300 Other Goals ambulation without AD 300 ft mod I up/down 3 steps B rails mod I up/down 13 steps R rail ascending mod I Days to Meet Goals 5 Frequency of Treatment Frequency Of Treatment Twice a Day Treatment Plan Physical Therapy Treatment Plan Bed Mobility Training,Transfer Training,Gait Training, Therapeutic Exercise,Balance Retraining,Post Op Education, Discharge Planning,Hot or Cold Pack,Neuromuscular Re-ed, Coordination Retraining,Manual Therapy Precautions Cervical Spine Precautions Soft Collar for Comfort,No Heavy Lifting,Log Roll Recommendations To Nursing Amount of Assist Needed Standby Assistance Discharge Recommendations PT Discharge Recommendations Home with Assistance Transportation Needs at Discharge Private Vehicle
--- NOTE | 2021-09-25 11:40 | CM.DANOTE ---
Discharge Assessment 09/25/21 Pt is 46yo Female who had spinal surgery performed by Dr. Carrillo. Patient resides at home with her mother and minor children. Patient reported having a cane to assist with ambulation as needed as well as a shower stool to use at home as needed. Patient reported being fully independent at baseline and feels comfortable with plan to discharge home. Patient's spouse lives separately () but he is also available to help as needed. Ins: [facility] P: patient is anticipated to discharge home this afternoon with patient's mother providing transportation. No discharge planning needs identified. Kirk Agrawal [facility] Discharge Planning/Care Management CM Discharge Assessment Start: 09/25/21 11:36 Freq: Status: Active Protocol: Document 09/25/21 11:37 KAREN (Rec: 09/25/21 11:40 KAREN [id number]) Discharge Planning Assessment Assigned Cleaner Wall Kirk Agrawal [facility] DPOA/Assigned Designee Name Mother Layla Contact Information [phone] Advance Directives? No History Provided By Patient Has Patient been admitted in last 30 No days? Prior Living Arrangements House Household Members family,children Type of transporation used prior to Drives own vehicle admit Independent with ADL's Yes Is patient alert and oriented? Yes Caregiver for Another Yes: minor children in home, pt's mother will assist DME Already Rented / Owned Cane Barriers to Discharge No Discharge Plan Home Transportation Arrangement pt's mother will transport home Referrals Initiated None needed Whiteboard Updated in Patient Room with Yes name and ext. # of Cleaner Wall Review Status In Process Next Review Type Continued Stay Review Pre-Anesthesia Assessment Start: 09/15/21 10:59 Freq: Status: Complete Protocol: Document 09/15/21 10:59 CAB (Rec: 09/15/21 11:41 CAB [id number]) Pre-Anesthesia Assessment Patient Information Reviewed Via Phone Assessment Assessment Completed With Patient Diagnostic Results BMP/CMP,CBC,EKG Comment Labs/EKG @ [facility], COVID screen @ [facility]-needs to schedule Primary Care Provider Aldair Aiken Seen Specialist in Last 12 Months Yes Specialist Seen Oncologist,Other Comment RA, GI doc Primary Language [place] Scorer Helper Required No Height 172.72 cm Weight 82.554 kg Body Mass Index (BMI) 27.6 Hearing Ability Normal Visual Assist Contacts,Glasses Dentition Type Teeth, Natural Present Barriers to Learning None Other Aids No Hx Anesthesia Reactions Yes: PONV Hx Family Anesthesia Reaction Yes: Brother - PONV Hx Malignant Hyperthermia No Hx Blood Transfusions No Anesthesia Review Requested Yes: COVID-19 08/12/21-did not require hospitalization 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 No Does patient have ARORA/SOB No Hx Sleep Apnea No CPAP/BIPAP use not prescribed Currently Taking a Beta Rosita No Hx Chest Pain No Hx SOB No Hx Syncope or Dizziness No Anti-Coagulant Therapy No Has a Pipe Coverer Helper No Cardiac Testing No Hx Pacemaker/ICD No Pacemaker Rep Required? No Diet Type At Home Regular,Gluten Free dysphagia No Urinary Catheter Present No Hx Urinary Self Catheterization No Diabetes No Patient No Lactating No Presence of External or Internal Medical No Devices Received a COVID vaccine? Yes: pfizer Received all doses? Yes Comment Last vaccine 01/11/2021 Marital Status Lives With family,children Support System Parent(s) Does the Patient Have Assistance After Yes Surgery Patient Discharge Plan Description Return Home Comment Pt not advised on length of stay per surgeon Feels Safe in Current Environment Yes Been Physically Hurt or Threatened By a No Person in Current Environment Do you have thoughts of harming yourself None or others? Are you currently considering suicide? No Do you have a plan to hurt yourself or No Plan others? Do You Have Any Spiritual Beliefs That No May Affect Your HC Choices? Do You Have Any Cultural Practices That No May Affect Your HC Choices? Who Can We Speak to About Patient's Care Family, friends Identifying Code for Release of Patient Declines to issue Information Health Care Proxy/Next of Kin Layla Garcia) Health Care Proxy Emergency Contact Name Layla Garcia) Emergency Contact Advance Directives? No PAC Instructions Medications to take/avoid, Nasal antibiotic,No ETOH/ petroleum product on skin DOS, NPO,Pre-op antibiotic,Sturdy shoes/comfortable clothes,Do not bring valuables and remove jewelry
[2021-09-25 12:10] VITALS: BP 148/95; PULSE 105; RESP 16; TEMP 37; O2SAT 96
--- NOTE | 2021-09-25 13:08 | PC.NURSE ---
Day shift: Pt left unit at approx 1300. Paperwork signed and all questions answered. Dressing remains CDI. Soft collar tolerated and CMS intact. No nausea today and pain well controlled per DEC. scripts sent electronic to Pt's pharmacy and Pt has hard copy for Tramadol. Pt has all personal belongings. Taken to car in by CHIOMA Whitlock.
== END 2021-09-25 13:18 | disposition home or self-care (01) ==
LOC: OR 12:19 → AC 14:31
PROVIDERS: Family Provider Family Medicine; PCP Family Medicine; Referring Provider Family Medicine; Visit Provider Orthopaedic Surgery Orthopaedic Surgery of the Spine
PROC: (CPT 22551; principal; 2021-09-24 13:45)
DX: M48.02 Spinal stenosis, cervical region (principal); M54.12 Radiculopathy, cervical region; J45.909 Unspecified asthma, uncomplicated; K21.9 Gastro-esophageal reflux disease without esophagitis; F32.9 Major depressive disorder, single episode, unspecified
CPT/HCPCS: 22551; 22853; 72040; 76000; 82962; 97161; 97165; 97535; C1776; J0171; J0690; J1100; J1170; J2250; J2405; J2704; J3010

== ENCOUNTER 2022-02-28 13:50 | Emergency (ER) | payer OTHER, SELFPAY ==
[2021-09-24 17:25] VITALS: BMI 27.6
[2022-02-28] VITALS (13 sets, daily range): BP systolic 124–151; BP diastolic 72–92; PULSE 97–118; RESP 17–42; TEMP 36.1; O2SAT 96–100; BMI 30.4
--- NOTE | 2022-02-28 14:04 | DI.RAD.S_ITS ---
PROCEDURE: XR CHEST 2V INDICATIONS: shortness of breath TECHNIQUE: 2 views of the chest were acquired. COMPARISON: None. FINDINGS: Surgical changes and devices: None. Lungs and pleura: Lungs are clear. No pleural effusions or pneumothorax. Mediastinum: Mediastinal contours are normal. Heart size is normal. Bones and chest wall: No suspicious bony abnormalities. Soft tissues appear unremarkable. IMPRESSION: No acute cardiopulmonary disease. Dictated by: Eric Bryan M.D. on 02/28/2022 at 13:26 Approved by: Eric Bryan M.D. on 02/28/2022 at 13:27
[2022-02-28 14:24] LABS: Add Manual Diff / Slide Review NO; Basophils Absolute Auto 100 /uL (0-100); Basophils Percent Auto 0.6 % (0-2); Eosinophils Absolute Auto 200 /uL (0-450); Eosinophils Percent Auto 1.9 % (2-4); Hematocrit 40.9 % (36-46); Hemoglobin 14.2 g/dL (12.0-16.0); Lymphocytes Absolute Auto 3600 /uL (1100-4500); Lymphocytes Percent Auto 34.9 % (25-40); Mean Corpuscular HGB Conc 34.8 % (30-36); Mean Corpuscular Hemoglobin 31.4 PG (26-34); Mean Corpuscular Volume 90.3 fL (80-100); Monocytes Absolute Auto 500 /uL (0-900); Monocytes Percent Auto 5.1 % (3-14); Neutrophils Absolute Auto 6000 /uL (1500-7000); Neutrophils Percent Auto 57.5 % (50-75); Platelet Count 256 X10^3/uL (150-400); Red Blood Cell Count 4.52 X10^6/uL (4.0-5.2); Red Cell Distribution Width 13.8 % (11.6-14.8); White Blood Cell Count 10.4 X10^3/uL (4.5-11.0)
[2022-02-28 14:39] LABS: Alanine Aminotransferase 21 IU/L (<35); Albumin 4.3 g/dL (3.5-5.0); Albumin Globulin Ratio 1.7 (1.0-2.8); Alkaline Phosphatase 51 U/L (38-126); Aspartate Aminotransferase 31 IU/L (14-36); BUN Creatinine Ratio 14.3 (6-22); Bilirubin Total 0.6 mg/dL (0.2-1.3); Blood Urea Nitrogen 14 mg/dL (7-17); Carbon Dioxide 27 mmol/L (22-32); Chloride 106 mmol/L (98-107); Estimated Glomerular Filt Rate > 60 mL/min (>60); Globulin 2.6 g/dL (1.7-4.1); Glucose 103 mg/dL (70-100); HEMOLYSIS < 15 (0-50); Lactate (Lactic Acid) 2.2 mmol/L (0.7-2.1); Potassium 3.7 mmol/L (3.4-5.1); Sodium 139 mmol/L (137-145); Total Protein 6.9 g/dL (6.3-8.2)
[2022-02-28 16:17] LABS: Reflexed Lactate in 2 Hours Y
--- NOTE | 2022-02-28 17:08 | ED.SOB ---
HPI - SOB/Dyspnea General Chief Complaint: Shortness of Breath/Dyspnea Stated Complaint: High bp, SOB, headache x 4 days Time Seen by Provider: 02/28/22 14:07 Source: patient Mode of arrival: Ambulatory Limitations: no limitations History of Present Illness HPI Narrative: 47F nonsmoker with history of rheumatoid arthritis frequently has impressive reactions to new medications presents with ongoing symptoms after her 1st infusion of tumor necrosis factor a few days ago. She complains of increasing fatigue and shortness of breath as well as elevated heart rate, blood pressure and headache. She had been given Solu-Medrol and Benadryl prior to the infusion and is taking little in the aftermath. She denies any blurred vision, trouble speech. She has no chest pain or productive cough. She denies abdominal pain. She denies other new medications or dietary change. Related Data Home Medications Medication Instructions Recorded Confirmed acyclovir 400 mg tablet 400 mg PO DAILY 12/05/19 09/24/21 lamotrigine 200 mg tablet 200 mg PO DAILY 12/05/19 09/24/21 duloxetine 30 mg capsule,delayed 30 mg PO BID 09/15/21 09/24/21 release gabapentin 300 mg capsule 300 mg PO TID 09/15/21 09/24/21 Humira See Rx Instructions .ROUTE .COMPLEX 09/24/21 09/24/21 Previous Rx's Medication Instructions Recorded norethindrone acetate 1 mg-ethinyl 1 tab PO QDAY #30 tab 08/05/16 estradiol 20 mcg tablet (Junel) acetaminophen 325 mg tablet 650 mg PO Q6HR PRN #60 tab 09/25/21 docusate sodium 100 mg capsule 100 mg PO BID #20 cap 09/25/21 hydromorphone 2 mg tablet 2 mg PO Q6H PRN #20 tab 09/25/21 (Dilaudid) hydroxyzine pamoate 25 mg capsule 25 mg PO Q4HR PRN #30 cap 09/25/21 tramadol 50 mg tablet 50 mg PO Q4HR PRN #60 tab 09/25/21 methylprednisolone 4 mg tablets in See Rx Instructions .ROUTE 02/28/22 a dose pack (Medrol (Apolinar)) .COMPLEX #21 ea Allergies Allergy/AdvReac Type Severity Reaction Status Date / Time amoxicillin [AMOXICILLIN] Allergy Severe extensive Verified 02/28/22 14:03 hives oxycodone Allergy Intermediate Hives Verified 02/28/22 14:03 hydroxychloroquine Allergy Mild Hives Verified 02/28/22 14:03 Sulfa (Sulfonamide Allergy Mild HIVES/RASH Verified 02/28/22 14:03 Antibiotics) [SULFA (SULFONAMIDE ANTIBIOTICS)] leflunomide Allergy Verified 02/28/22 14:03 gluten AdvReac Intermediate Verified 02/28/22 14:03 hydrocodone AdvReac Unknown Feels Verified 02/28/22 14:03 stoned and breanay Review of Systems Review of Systems Narrative: GENERAL: Denies chills, fatigue, malaise, fever, sweats. HEENT: Denies sinus pain, ear pain, sore throat, difficulty swallowing, dizziness. RESPIRATORY: See HPI CARDIOVASCULAR: Denies chest pain, palpitations, orthopnea, edema, GASTROINTESTINAL: Denies nausea, vomiting, abdominal pain, diarrhea, constipation, melena. : Denies dysuria, frequency, incontinence, hematuria, urinary retention. MUSCULOSKELETAL: denies weakness, joint pain, or bony pain SKIN: Denies rash, skin lesions, or other NEUROLOGIC: See HPI PSYCHIATRIC: No concerning psychosocial issues. 12 point review of systems is negative except for those stated above Patient History Medical History Anesthesia complication Anxiety Asthma Bipolar 2 disorder Celiac disease Constipation COVID-19 virus infection (08/12/21) Depression Dog bite of hand (12/2008) Fibromyalgia GERD (gastroesophageal reflux disease) Headache, migraine IBS (irritable bowel syndrome) Surgical History History of ankle surgery (03/2019) History of sacrocolpopexy (05/2021) Hx of appendectomy (10/2012) Hx of hemorrhoidectomy (12/18/19) Hx of laparoscopy (03/2017) Hx of removal of cyst (1997) Hx of tonsillectomy (2016) Status post endoscopy Status post excision of lipoma (09/2016) Status post laparoscopy (03/26/16) Status post loop electrosurgical excision procedure (LEEP) of cervix Family History Brother Age: 47 Cancer Father Age: 72 Cancer Heart disease Hypertension High cholesterol Mental health problem Grandfather Heart disease Hypertension Stroke Grandmother Cancer Mother Age: 69 Hypertension Grandmother Heart disease Hypertension Social History household members: family and children Smoking Status: Never smoker alcohol intake: current Smoking Status: Never smoker alcohol intake frequency: holidays/special occasions only Substance Use Type: does not use Exam Narrative Exam Narrative: GENERAL: [47] year old patient appears stated age. Well-developed patient, in mild distress. HEAD: Atraumatic. Normocephalic. EYES: Pupils equal round and reactive. Extraocular motions intact. No scleral icterus. No injection or drainage. ENT: Nose without bleeding, purulent drainage. Throat without erythema, tonsillar hypertrophy or exudate. Airway patent. NECK: Trachea midline. Non tender CARDIOVASCULAR: Regular rate and rhythm without murmurs, gallops, or rubs. RESPIRATORY: Clear to auscultation. Breath sounds equal bilaterally. No wheezes, rales, or rhonchi. GASTROINTESTINAL: Abdomen soft, non-tender, nondistended. EXTREMITIES: No edema or joint tenderness. BACK: Nontender without deformity or crepitance. No flank tenderness. NEURO: AOx3. SKIN: No rash or erythema of visible areas Initial Vital Signs Initial Vital Signs: Vital Signs Temperature 97.0 F L 02/28/22 13:58 Pulse Rate 118 H 02/28/22 13:58 Blood Pressure 143/88 H 02/28/22 13:58 Pulse Oximetry 99 02/28/22 13:58 Course Orders Ordered: Discontinued Medications Diphenhydramine HCl (Diphenhydramine 50 Mg/Ml Vial) 25 mg IV NOW ONE Stop: 02/28/22 17:53 Last Admin: 02/28/22 18:04 Dose: 25 mg Documented by: JAMA Famotidine (Famotidine 20 Mg/2 Ml Vial) 20 mg IV NOW RAMANDEEP Last Admin: 02/28/22 18:03 Dose: 20 mg Documented by: JAMA Sodium Chloride (Normal Saline 0.9%) 1,000 mls @ 1,000 mls/hr IV BOLUS PRN PRN Reason: Fluid replacement Last Infusion: 02/28/22 19:33 Dose: 0 mls/hr Documented by: Admin: 02/28/22 18:20 Dose: 1,000 mls/hr Documented by: JAMA Methylprednisolone (Methylprednisolone 125 Mg/2 Ml Vial) 125 mg IV NOW ONE Stop: 02/28/22 17:53 Last Admin: 02/28/22 18:03 Dose: 125 mg Documented by: JAMA Reevaluation(s) Reevaluation #1: Patient has significant improvement symptoms after above-stated therapies. Vital Signs Vital signs: Vital Signs - 8 hr 02/28/22 15:13 02/28/22 15:30 02/28/22 16:00 Pulse Rate 117 H 101 H 103 H Respiratory Rate 17 19 Blood Pressure 135/87 142/77 H 131/72 Pulse Oximetry 98 96 97 02/28/22 16:30 02/28/22 16:46 02/28/22 17:00 Pulse Rate 98 H 105 H 105 H Respiratory Rate 19 38 H 25 H Blood Pressure 124/81 131/85 134/85 Pulse Oximetry 97 99 98 02/28/22 17:30 02/28/22 17:40 02/28/22 18:00 Pulse Rate 116 H 104 H 103 H Respiratory Rate 42 H 26 H 36 H Blood Pressure 149/92 H Pulse Oximetry 100 98 99 02/28/22 18:30 02/28/22 19:00 02/28/22 19:45 Pulse Rate 104 H 97 H Respiratory Rate 29 H Blood Pressure 151/90 H Pulse Oximetry 99 99 MDM - SOB/Dyspnea Lab Data Result diagrams: 02/28/22 14:05 02/28/22 14:05 Labs: Lab Results 02/28/22 02/28/22 02/28/22 Range/Units 14:05 14:05 14:05 WBC 10.4 (4.5-11.0) X10^3/uL RBC 4.52 (4.0-5.2) X10^6/uL Hgb 14.2 (12.0-16.0) g/dL Hct 40.9 (36-46) % MCV 90.3 (80-100) fL MCH 31.4 (26-34) PG MCHC 34.8 (30-36) % RDW 13.8 (11.6-14.8) % Plt Count 256 (150-400) X10^3/uL Neut % (Auto) 57.5 (50-75) % Lymph % (Auto) 34.9 (25-40) % Payette % (Auto) 5.1 (3-14) % Eos % (Auto) 1.9 L (2-4) % Baso % (Auto) 0.6 (0-2) % Neut # (Auto) 6000 (2254-8739) /uL Lymph # (Auto) 3600 (0066-7722) /uL Payette # (Auto) 500 (0-900) /uL Eos # (Auto) 200 (0-450) /uL Baso # (Auto) 100 (0-100) /uL D-Dimer (<230) ng/mL Sodium 139 (137-145) mmol/L Potassium 3.7 (3.4-5.1) mmol/L Chloride 106 (98-107) mmol/L Carbon Dioxide 27 (22-32) mmol/L BUN 14 (7-17) mg/dL Creatinine 0.98 (0.52-1.04) mg/dL Estimated GFR > 60 (>60) mL/min BUN/Creatinine Ratio 14.3 (6-22) Glucose 103 H (70-100) mg/dL Lactate 2.2 H (0.7-2.1) mmol/L Calcium 9.0 (8.4-10.2) mg/dL Total Bilirubin 0.6 (0.2-1.3) mg/dL AST 31 (14-36) IU/L ALT 21 (<35) IU/L Alkaline Phosphatase 51 (38-126) U/L Total Protein 6.9 (6.3-8.2) g/dL Albumin 4.3 (3.5-5.0) g/dL Globulin 2.6 (1.7-4.1) g/dL Albumin/Globulin Ratio 1.7 (1.0-2.8) 02/28/22 02/28/22 Range/Units 14:05 17:15 WBC (4.5-11.0) X10^3/uL RBC (4.0-5.2) X10^6/uL Hgb (12.0-16.0) g/dL Hct (36-46) % MCV (80-100) fL MCH (26-34) PG MCHC (30-36) % RDW (11.6-14.8) % Plt Count (150-400) X10^3/uL Neut % (Auto) (50-75) % Lymph % (Auto) (25-40) % Payette % (Auto) (3-14) % Eos % (Auto) (2-4) % Baso % (Auto) (0-2) % Neut # (Auto) (1104-9847) /uL Lymph # (Auto) (2521-4869) /uL Payette # (Auto) (0-900) /uL Eos # (Auto) (0-450) /uL Baso # (Auto) (0-100) /uL D-Dimer < 200 (<230) ng/mL Sodium (137-145) mmol/L Potassium (3.4-5.1) mmol/L Chloride (98-107) mmol/L Carbon Dioxide (22-32) mmol/L BUN (7-17) mg/dL Creatinine (0.52-1.04) mg/dL Estimated GFR (>60) mL/min BUN/Creatinine Ratio (6-22) Glucose (70-100) mg/dL Lactate 1.4 (0.7-2.1) mmol/L Calcium (8.4-10.2) mg/dL Total Bilirubin (0.2-1.3) mg/dL AST (14-36) IU/L ALT (<35) IU/L Alkaline Phosphatase (38-126) U/L Total Protein (6.3-8.2) g/dL Albumin (3.5-5.0) g/dL Globulin (1.7-4.1) g/dL Albumin/Globulin Ratio (1.0-2.8) Imaging Data Chest x-ray: Radiologist's Impression: Launch?[place] [address] XRay Report Signed Patient: Linn Olvera MR#: [id number] : 1975 Acct:[id number] Age/Sex: 47 / F Date of Service: 02/28/22 Loc: ED Accession Number: [id number] ?? Procedure: XR chest 2V Ordering Provider: Dinesh Cevallos D.O. PROCEDURE:? XR CHEST 2V ? INDICATIONS:? shortness of breath ? TECHNIQUE:? 2 views of the chest were acquired.? ? COMPARISON:? None. ? FINDINGS:? ? Surgical changes and devices:? None.? ? Lungs and pleura:? Lungs are clear.? No pleural effusions or pneumothorax.? ? Mediastinum:? Mediastinal contours are normal.? Heart size is normal.? ? Bones and chest wall:? No suspicious bony abnormalities.? Soft tissues appear unremarkable.? ? IMPRESSION:? No acute cardiopulmonary disease. ? ? Dictated by: Eric Bryan M.D. on 02/28/2022 at 13:26 ? ? Approved by: Eric Bryan M.D. on 02/28/2022 at 13:27? MDM Narrative Medical decision making narrative: Multiple etiologies for patient's symptoms considered including: [Medication reaction versus pneumonia versus pulmonary embolism versus other Patient's symptoms improved over duration of stay with above-stated therapies. Findings and discharge diagnosis discussed with patient/family followed by verbalization of understanding Return precautions discussed with patient/family whom verbalize understanding. Discharge Plan Departure Patient Disposition: Home Clinical Impression: Medication adverse effect Instructions: DI for Adverse Drug Reaction -- Other Activity Restrictions/Additional Instructions: *You have been diagnosed with [adverse reaction to medication. As we discussed your history and physical exam as well as labs, imaging and response to therapies is very reassuring. There is no evidence of infection, anemia, electrolyte abnormality, kidney failure, blood clot or other diagnosis which would require he specific or immediate intervention. *What to do: *Please continue to take your regular medications as directed. [ x] New medication prescriptions sent to your pharmacy: [[facility] ] [ ] New medication written as a paper prescription [ ] No new medications given *Please follow up with your primary care provider in 2-3 days, call for an appointment. Let them know you were seen in the Emergency Department and that we ask that you be seen in follow up. We will electronically transmit a record of today's note if your PCP is in our system *If you do not have a primary care provider please contact the [facility] Resource line at [phone]. They will ask some questions about your medical history and help get you set up with a doctor in the community. *Return to Emergency Department if you should have any new, worsening or concerning symptoms, such as [fever greater than 101 F, shaking chills, worsening pain, persistent vomiting or other bothersome symptoms] Prescriptions: New methylprednisolone [Medrol (Apolinar)] 4 mg tablets,dose pack See Rx Instructions .ROUTE .COMPLEX Qty: 21 0RF Rx Instructions: orally per package directions No Action norethindrone ac-eth estradiol [June11/12 (21)] 1 MG/20 MCG tablet 1 tab PO QDAY Qty: 30 3RF lamotrigine 200 mg tablet 200 mg PO DAILY 0RF acyclovir 400 mg tablet 400 mg PO DAILY 0RF gabapentin 300 mg Capsule 300 mg PO TID 0RF duloxetine 30 mg Capsule,Delayed Release(Dr/Ec) 30 mg PO BID 0RF Humira See Rx Instructions .ROUTE .COMPLEX 0RF Rx Instructions: pt does not know dose . Pt states she takes it every two weeks acetaminophen 325 mg Tablet 650 mg PO Q6HR PRN (Reason: Pain, Mild (1-3)) Qty: 60 0RF tramadol 50 mg Tablet 50 mg PO Q4HR PRN (Reason: Pain, Moderate (4-6)) Qty: 60 0RF docusate sodium 100 mg Capsule 100 mg PO BID Qty: 20 0RF hydroxyzine pamoate 25 mg Capsule 25 mg PO Q4HR PRN (Reason: Nausea And Vomiting) Qty: 30 0RF hydromorphone [Dilaudid] 2 mg tablet 2 mg PO Q6H PRN (Reason: pain) Qty: 20 0RF Rx Instructions: Take 1 tablet every 6 hours as needed for breakthrough pain Referrals: Aldair Aiken MD [Primary Care Provider] -
[2022-02-28 17:41] LABS: Lactate 2HR (Lactic Acid Rflx) 1.4 mmol/L (0.7-2.1)
[2022-02-28] MEDS: FAMOTIDINE 20 MG/2 ML VIAL IV (18:03)
[2022-02-28] MEDS: methylPREDNISolone 125 MG/2 ML VIAL IV (18:03)
[2022-02-28] MEDS: diphenhydrAMINE 50 MG/ML VIAL 25 MG IV (18:04)
[2022-02-28 18:17] LABS: D Dimer < 200 ng/mL (<230)
[2022-02-28] MEDS: SODIUM CHLORIDE 0.9% 1,000 ML 1000 ML IV (18:20)
== END 2022-02-28 19:40 | disposition home or self-care (01) ==
PROVIDERS: Emergency Provider Emergency Medicine; Family Provider Family Medicine; PCP Family Medicine
DX: T80.89XA Other complications following infusion, transfusion and therapeutic injection, initial encounter (principal); R06.02 Shortness of breath
CPT/HCPCS: 36415; 71046; 80053; 83605; 85025; 85379; 93005; 96374; 96375; 99284; J1200; J2930

== ENCOUNTER → 2022-09-13 14:56 | Outpatient (CLI) | payer OTHER, SELFPAY ==
[2021-09-24 17:25] VITALS: BMI 27.6
--- NOTE | 2022-09-13 | DI.CT.S_ITS ---
PROCEDURE: CT ANGIO CHEST PE PROTOCOL INDICATIONS: other forms of dsypnea TECHNIQUE: After the administration of intravenous contrast, 2 mm thick sections acquired from the pulmonary apices to the posterior costophrenic angles. 3-dimensional maximum intensity projection (MIP) coronal and sagittal reformats were then acquired through the thorax. For radiation dose reduction, the following was used: automated exposure control, adjustment of mA and/or kV according to patient size. COMPARISON: [facility], CT, CT ANGIO CHEST PE PROTOCOL, 09/02/2021, 17:18. FINDINGS: Image quality: Excellent. Pulmonary arteries: Pulmonary arteries are normal in size, and demonstrate no intraluminal filling defects to suggest central pulmonary embolism. Lungs and pleura: Lungs are clear. No pleural effusions or pneumothorax. Central and peripheral airways are patent. Mediastinum: Heart size is normal, without pericardial effusion. No mediastinal or hilar adenopathy. Thoracic aorta is normal in caliber and enhancement. Esophagus is normal in caliber, without hiatal hernia. Bones and chest wall: No suspicious bony lesions. Ribs and thoracic spine appear intact throughout. Thyroid gland is unremarkable. No axillary or supraclavicular adenopathy. Abdomen: Visualized upper abdominal solid organs appear normal in the early arterial phase of enhancement. IMPRESSION: 1. No acute pulmonary embolus. 2. No acute pulmonary findings to explain dyspnea. Dictated by: Suzanne Rivera M.D. on 09/13/2022 at 15:36 Approved by: Szuanne Rivera M.D. on 09/13/2022 at 15:40
== END ==
PROVIDERS: Family Provider Family Medicine; PCP Family Medicine; Referring Provider Family Medicine; Visit Provider Family Medicine
DX: R06.09 Other forms of dyspnea (principal)
CPT/HCPCS: 71275; Q9967

== ENCOUNTER 2022-09-20 16:56 | Emergency (ER) | payer OTHER, SELFPAY ==
[2021-09-24 17:25] VITALS: BMI 27.6
--- NOTE | 2022-09-20 17:03 | DI.RAD.S_ITS ---
PROCEDURE: XR CHEST 1V INDICATIONS: chest pain TECHNIQUE: One view of the chest was acquired. COMPARISON: [facility], CR, XR CHEST 2V, 02/28/2022, 13:55. FINDINGS: Surgical changes and devices: None. Lungs and pleura: Lungs are clear. No pleural effusions or pneumothorax. Mediastinum: Mediastinal contours appear normal. Heart size is normal. Bones and chest wall: No suspicious bony lesions. Overlying soft tissues appear unremarkable. IMPRESSION: No acute cardiopulmonary abnormality. Dictated by: Joey Epstein M.D. on 09/20/2022 at 18:13 Approved by: Joey Epstein M.D. on 09/20/2022 at 18:13
[2022-09-20 17:04] VITALS: PULSE 103; RESP 24; O2SAT 98
[2022-09-20 17:05] VITALS: BP 160/106; PULSE 130; RESP 32; TEMP 36.8; O2SAT 99; BMI 29.6
[2022-09-20 17:21] LABS: Add Manual Diff / Slide Review NO; Basophils Absolute Auto 100 /uL (0-100); Basophils Percent Auto 0.8 % (0-2); Eosinophils Absolute Auto 0 /uL (0-450); Eosinophils Percent Auto 0.1 % (2-4); Hematocrit 45.1 % (36-46); Hemoglobin 15.3 g/dL (12.0-16.0); Lymphocytes Absolute Auto 2400 /uL (1100-4500); Lymphocytes Percent Auto 20.5 % (25-40); Mean Corpuscular HGB Conc 33.8 % (30-36); Mean Corpuscular Hemoglobin 30.7 PG (26-34); Mean Corpuscular Volume 90.8 fL (80-100); Monocytes Absolute Auto 300 /uL (0-900); Neutrophils Absolute Auto 8900 /uL (1500-7000); Neutrophils Percent Auto 75.6 % (50-75); Platelet Count 235 X10^3/uL (150-400); Red Blood Cell Count 4.97 X10^6/uL (4.0-5.2); Red Cell Distribution Width 14.8 % (11.6-14.8); White Blood Cell Count 11.8 X10^3/uL (4.5-11.0)
[2022-09-20 17:25] LABS: INR 0.9 (0.9-1.3); Prothrombin Time 9.8 SECONDS (10.1-12.7)
[2022-09-20 17:28] LABS: PTT Partial Thromboplastin Tim 24 SECONDS (26-36)
[2022-09-20 17:30] VITALS: PULSE 107; RESP 31; O2SAT 98
[2022-09-20 17:30] LABS: Alanine Aminotransferase 28 IU/L (<35); Albumin 4.3 g/dL (3.5-5.0); Albumin Globulin Ratio 1.5 (1.0-2.8); Alkaline Phosphatase 44 U/L (38-126); Aspartate Aminotransferase 24 IU/L (14-36); BUN Creatinine Ratio 13.9 (6-22); Bilirubin Total 0.7 mg/dL (0.2-1.3); Blood Urea Nitrogen 10 mg/dL (7-17); Calcium 8.9 mg/dL (8.4-10.2); Carbon Dioxide 23 mmol/L (22-32); Chloride 103 mmol/L (98-107); Creatine Kinase 32 U/L (30-135); Estimated Glomerular Filt Rate > 60 mL/min (>60); Globulin 2.9 g/dL (1.7-4.1); Glucose 143 mg/dL (70-100); HEMOLYSIS < 15 (0-50); Lipase 147 U/L (23-300); Potassium 3.8 mmol/L (3.4-5.1); Sodium 138 mmol/L (137-145); Total Protein 7.2 g/dL (6.3-8.2)
[2022-09-20 17:32] VITALS: BP 136/73; PULSE 101; RESP 39; O2SAT 97
--- NOTE | 2022-09-20 17:35 | ED.CHESTPAIN ---
HPI - Chest Pain General Chief Complaint: Chest Pain Stated Complaint: SOB, Tachycardia, Chest pain Time Seen by Provider: 09/20/22 17:12 Source: patient Mode of arrival: Ambulatory Limitations: no limitations History of Present Illness HPI narrative: 47-year-old female. For the past several weeks/months she is had episodes of shortness of breath and tachycardia and chest discomfort. She is seen her primary doctor. Has somewhat of a workup of this to include a CT scan of her chest last week. Pulmonary function test and echocardiogram ordered but they have not been scheduled yet. They have not been approved by her insurance company. She is also getting over shingles. She does have rheumatoid arthritis. Is on prednisone. The shingles rash is improving as well. She saw her primary doctor today. He wanted to start her on metoprolol but she thought that he was just making shots at the dark at her symptoms. She came to the emergency department to try to get a echocardiogram completed. Related Data Home Medications Medication Instructions Recorded Confirmed acyclovir 400 mg tablet 400 mg PO DAILY 12/05/19 09/24/21 lamotrigine 200 mg tablet 200 mg PO DAILY 12/05/19 09/24/21 duloxetine 30 mg capsule,delayed 30 mg PO BID 09/15/21 09/24/21 release gabapentin 300 mg capsule 300 mg PO TID 09/15/21 09/24/21 Humira See Rx Instructions .Route .COMPLEX 09/24/21 09/24/21 Previous Rx's Medication Instructions Recorded norethindrone acetate 1 mg-ethinyl 1 tab PO QDAY #30 tabs 08/05/16 estradiol 20 mcg tablet (Junel) acetaminophen 325 mg tablet 650 mg PO Q6HR PRN Pain, Mild 09/25/21 (1-3) #60 tabs docusate sodium 100 mg capsule 100 mg PO BID #20 caps 09/25/21 hydromorphone 2 mg tablet 2 mg PO Q6H PRN pain #20 tabs 09/25/21 (Dilaudid) hydroxyzine pamoate 25 mg capsule 25 mg PO Q4HR PRN Nausea And 09/25/21 Vomiting #30 caps tramadol 50 mg tablet 50 mg PO Q4HR PRN Pain, Moderate 09/25/21 (4-6) #60 tabs methylprednisolone 4 mg tablets in See Rx Instructions PO .COMPLEX 02/28/22 a dose pack (Medrol (Apolinar)) #21 ea Allergies Allergy/AdvReac Type Severity Reaction Status Date / Time amoxicillin [AMOXICILLIN] Allergy Severe extensive Verified 09/20/22 17:11 hives oxycodone Allergy Intermediate Hives Verified 09/20/22 17:11 hydroxychloroquine Allergy Mild Hives Verified 09/20/22 17:11 Sulfa (Sulfonamide Allergy Mild HIVES/RASH Verified 09/20/22 17:11 Antibiotics) [SULFA (SULFONAMIDE ANTIBIOTICS)] leflunomide Allergy Verified 09/20/22 17:11 gluten AdvReac Intermediate Verified 09/20/22 17:11 hydrocodone AdvReac Unknown Feels Verified 09/20/22 17:11 stoned and loopy Review of Systems Constitutional Constitutional: Reports system reviewed and no additional complaints, except as documented Cardiovascular Cardiovascular: Reports system reviewed and no additional complaints, except as documented Respiratory Respiratory: Reports system reviewed and no additional complaints, except as documented Gastrointestinal Gastrointestinal: Reports system reviewed and no additional complaints, except as documented Integumentary/Breasts Skin/Breast: Reports system reviewed and no additional complaints, except as documented Neurologic Neurologic: Reports system reviewed and no additional complaints, except as documented Hematologic/Lymphatic On Anticoagulants: No Patient History Medical History Anesthesia complication Anxiety Asthma Bipolar 2 disorder Celiac disease Constipation COVID-19 virus infection (08/12/21) Depression Dog bite of hand (12/2008) Fibromyalgia GERD (gastroesophageal reflux disease) Headache, migraine IBS (irritable bowel syndrome) Surgical History History of ankle surgery (03/2019) History of sacrocolpopexy (05/2021) Hx of appendectomy (10/2012) Hx of hemorrhoidectomy (12/18/19) Hx of laparoscopy (03/2017) Hx of removal of cyst (1997) Hx of tonsillectomy (2016) Status post endoscopy Status post excision of lipoma (09/2016) Status post laparoscopy (03/26/16) Status post loop electrosurgical excision procedure (LEEP) of cervix Family History Brother Age: 48 Cancer Father Age: 73 Cancer Heart disease Hypertension High cholesterol Mental health problem Grandfather Heart disease Hypertension Stroke Grandmother Cancer Mother Age: 70 Hypertension Grandmother Heart disease Hypertension Social History household members: family and children Smoking Status: Never smoker alcohol intake: current Smoking Status: Never smoker alcohol intake frequency: holidays/special occasions only Substance Use Type: does not use Exam Initial Vital Signs Initial Vital Signs: Vital Signs Pulse Rate 103 H 09/20/22 17:04 Respiratory Rate 24 09/20/22 17:04 Pulse Oximetry 98 09/20/22 17:04 HENMT Head: normal to inspection and normocephalic Resp Effort & Inspection: normal respiratory effort Auscultation: clear to auscultation bilaterally Cardio Rate: tachycardic Rhythm: regular rhythm Heart Sounds: no murmurs and no rubs Skin General: no rashes or lesions noted Neuro General: patient alert, patient awake, patient oriented x3 and moves all extremities Extrem General: normal to inspection and No edema Psych Appearance: grossly normal and well kempt Course Orders Ordered: ED Orders 09/20/22 17:00 BNP [NT-proBNP (BNP-Adult 18+)] Stat Complete Blood Count AUTO DIFF Stat Comprehensive Metabolic Panel Stat Covid-19 + FLU A/B + RSV - PCR Stat Lipase Stat Magnesium Stat Partial Thromboplastin Time Stat Prothrombin Time INR Stat Troponin & CK Cardiac Panel Stat 09/20/22 17:03 XR chest 1V Stat EKG-12 Lead Stat 09/20/22 17:27 EC echo doppler complete Stat Discontinued Medications Aspirin (Aspirin 81 Mg Chew Tab) 324 mg PO NOW ONE Stop: 09/20/22 17:04 Last Admin: 09/20/22 17:55 Dose: Not Given Documented By: CTS Vital Signs Vital signs: Vital Signs - 8 hr 09/20/22 17:05 09/20/22 17:04 Temperature 98.3 F Pulse Rate 130 H 103 H Respiratory Rate 32 H 24 Blood Pressure 160/106 H Pulse Oximetry 99 98 Oxygen Delivery Method Room Air MDM - Chest Pain Medical Records Data Attestation: I reviewed the patient's medical records. Lab Data Attestation: I reviewed the patient's lab results. Result diagrams: 09/20/22 17:00 09/20/22 17:00 Labs: Lab Results 09/20/22 09/20/22 09/20/22 Range/Units 17:00 17:00 17:00 WBC 11.8 H (4.5-11.0) X10^3/uL RBC 4.97 (4.0-5.2) X10^6/uL Hgb 15.3 (12.0-16.0) g/dL Hct 45.1 (36-46) % MCV 90.8 (80-100) fL MCH 30.7 (26-34) PG MCHC 33.8 (30-36) % RDW 14.8 (11.6-14.8) % Plt Count 235 (150-400) X10^3/uL Neut % (Auto) 75.6 H (50-75) % Lymph % (Auto) 20.5 L (25-40) % [place] % (Auto) 3.0 (3-14) % Eos % (Auto) 0.1 L (2-4) % Baso % (Auto) 0.8 (0-2) % Neut # (Auto) 8900 H (4952-3803) /uL Lymph # (Auto) 2400 (1980-4611) /uL [place] # (Auto) 300 (0-900) /uL Eos # (Auto) 0 (0-450) /uL Baso # (Auto) 100 (0-100) /uL PT 9.8 L (10.1-12.7) SECONDS INR 0.9 (0.9-1.3) APTT 24 L (26-36) SECONDS Sodium 138 (137-145) mmol/L Potassium 3.8 (3.4-5.1) mmol/L Chloride 103 (98-107) mmol/L Carbon Dioxide 23 (22-32) mmol/L BUN 10 (7-17) mg/dL Creatinine 0.72 (0.52-1.04) mg/dL Estimated GFR > 60 (>60) mL/min BUN/Creatinine Ratio 13.9 (6-22) Glucose 143 H (70-100) mg/dL Calcium 8.9 (8.4-10.2) mg/dL Magnesium 2.0 (1.6-2.3) mg/dL Total Bilirubin 0.7 (0.2-1.3) mg/dL AST 24 (14-36) IU/L ALT 28 (<35) IU/L Alkaline Phosphatase 44 (38-126) U/L Total Creatine Kinase 32 (30-135) U/L CK-MB (CK-2) TNP CK-MB (CK-2) Rel Index TNP Troponin I < 0.012 (0.01-0.034) ng/mL NT-Pro-B Natriuret Pep (<125) pg/mL Total Protein 7.2 (6.3-8.2) g/dL Albumin 4.3 (3.5-5.0) g/dL Globulin 2.9 (1.7-4.1) g/dL Albumin/Globulin Ratio 1.5 (1.0-2.8) Lipase 147 (23-300) U/L SARS-CoV-2 (PCR) (Negative) Influenza A (RT-PCR) (NEGATIVE) Influenza B (RT-PCR) (NEGATIVE) RSV (PCR) (Negative) 09/20/22 09/20/22 Range/Units 17:00 17:00 WBC (4.5-11.0) X10^3/uL RBC (4.0-5.2) X10^6/uL Hgb (12.0-16.0) g/dL Hct (36-46) % MCV (80-100) fL MCH (26-34) PG MCHC (30-36) % RDW (11.6-14.8) % Plt Count (150-400) X10^3/uL Neut % (Auto) (50-75) % Lymph % (Auto) (25-40) % [place] % (Auto) (3-14) % Eos % (Auto) (2-4) % Baso % (Auto) (0-2) % Neut # (Auto) (5539-4362) /uL Lymph # (Auto) (4603-0224) /uL [place] # (Auto) (0-900) /uL Eos # (Auto) (0-450) /uL Baso # (Auto) (0-100) /uL PT (10.1-12.7) SECONDS INR (0.9-1.3) APTT (26-36) SECONDS Sodium (137-145) mmol/L Potassium (3.4-5.1) mmol/L Chloride (98-107) mmol/L Carbon Dioxide (22-32) mmol/L BUN (7-17) mg/dL Creatinine (0.52-1.04) mg/dL Estimated GFR (>60) mL/min BUN/Creatinine Ratio (6-22) Glucose (70-100) mg/dL Calcium (8.4-10.2) mg/dL Magnesium (1.6-2.3) mg/dL Total Bilirubin (0.2-1.3) mg/dL AST (14-36) IU/L ALT (<35) IU/L Alkaline Phosphatase (38-126) U/L Total Creatine Kinase (30-135) U/L CK-MB (CK-2) CK-MB (CK-2) Rel Index Troponin I (0.01-0.034) ng/mL NT-Pro-B Natriuret Pep 20 (<125) pg/mL Total Protein (6.3-8.2) g/dL Albumin (3.5-5.0) g/dL Globulin (1.7-4.1) g/dL Albumin/Globulin Ratio (1.0-2.8) Lipase (23-300) U/L SARS-CoV-2 (PCR) Negative (Negative) Influenza A (RT-PCR) Flu a negative (NEGATIVE) Influenza B (RT-PCR) Flu b negative (NEGATIVE) RSV (PCR) Negative (Negative) Imaging Data Chest x-ray: My Impression: No pneumonia, no effusion ECG Data Attestation: I personally reviewed and interpreted this ECG as follows: Interpretation: Sinus tachycardia Ventricular rate 105 and has normal axis Normal QRS Normal QTC No ST T wave changes MDM Narrative Medical decision making narrative: Patient states that there is nothing new she is just here because there is difficulty obtaining the echocardiogram of the pulmonary function test as an outpatient. He is afebrile. She is no findings on the EKG that would make me think that she has pericarditis. No fevers. Labs unremarkable. Not in heart failure. Lungs are clear. I do not doubt that she needs an echocardiogram and pulmonary function tests however duty our we are unable to obtain those here in the emergency department. I do not think that we need to repeat any CT scan of her chest. I discussed the case with her primary doctor. He wanted to start her on metoprolol for symptomatic treatment. Had a discussion with her regarding this. We will start her on metoprolol. She is okay with doing this. She understands that this would not provide any specific diagnosis but when maybe help her symptoms. Her primary doctor will call her tomorrow for a follow-up. She expressed understanding and agreement. Discharge Plan Departure Patient Disposition: Home Clinical Impression: Tachycardia, Dyspnea on exertion Instructions: DI for Tachycardia Activity Restrictions/Additional Instructions: I recommend that you take all the medications as directed as well as the metoprolol that was sent to the pharmacy of her choice by her primary doctor. You should be receiving a phone call from your primary doctor's office tomorrow for follow-up. Contact your insurance company tomorrow as well about scheduling the echocardiogram. Return to the emergency department for new symptoms. Prescriptions: No Action norethindrone ac-eth estradiol [11/12 (21)] 1 MG/20 MCG tablet 1 tab PO QDAY Qty: 30 3RF lamotrigine 200 mg tablet 200 mg PO DAILY acyclovir 400 mg tablet 400 mg PO DAILY gabapentin 300 mg Capsule 300 mg PO TID duloxetine 30 mg Capsule,Delayed Release(Dr/Ec) 30 mg PO BID Humira See Rx Instructions .ROUTE .COMPLEX Rx Instructions: pt does not know dose . Pt states she takes it every two weeks acetaminophen 325 mg Tablet 650 mg PO Q6HR PRN (Reason: Pain, Mild (1-3)) Qty: 60 0RF tramadol 50 mg Tablet 50 mg PO Q4HR PRN (Reason: Pain, Moderate (4-6)) Qty: 60 0RF docusate sodium 100 mg Capsule 100 mg PO BID Qty: 20 0RF hydroxyzine pamoate 25 mg Capsule 25 mg PO Q4HR PRN (Reason: Nausea And Vomiting) Qty: 30 0RF hydromorphone [Dilaudid] 2 mg tablet 2 mg PO Q6H PRN (Reason: pain) Qty: 20 0RF Rx Instructions: Take 1 tablet every 6 hours as needed for breakthrough pain methylprednisolone [Medrol (Apolinar)] 4 mg tablets,dose pack See Rx Instructions .ROUTE .COMPLEX Qty: 21 0RF Rx Instructions: orally per package directions Referrals: Aldair Aiken MD [Primary Care Provider] -
[2022-09-20 17:38] LABS: NT-proBNP (BNP-Adult 18+) 20 pg/mL (<125)
[2022-09-20 17:42] LABS: Troponin I < 0.012 ng/mL (0.01-0.034)
[2022-09-20 17:59] LABS: Influenza A - CEPHEID Flu A NEGATIVE (NEGATIVE); Influenza B - CEPHEID Flu B NEGATIVE (NEGATIVE); Respiratory Syncytial Virus Negative (Negative)
[2022-09-20 18:00] VITALS: BP 140/91; PULSE 109; RESP 34; O2SAT 96
[2022-09-20 18:01] LABS: COVID-19 CEPHEID 4-PLEX PCR Negative (Negative)
== END 2022-09-20 18:42 | disposition home or self-care (01) ==
PROVIDERS: Emergency Provider Emergency Medicine; Family Provider Family Medicine; PCP Family Medicine
DX: R00.0 Tachycardia, unspecified (principal); R06.00 Dyspnea, unspecified; Z20.822 Contact with and (suspected) exposure to COVID-19
CPT/HCPCS: 0241U; 36415; 71045; 80053; 82550; 83690; 83735; 83880; 84484; 85025; 85610; 85730; 93005; 99283; 99284

== ENCOUNTER → 2022-09-22 07:47 | Outpatient (CLI) | payer OTHER, SELFPAY ==
[2021-09-24 17:25] VITALS: BMI 27.6
--- NOTE | 2022-09-22 | DI.ECHO.S_ITS ---
[facility] +---------+ : : [address] : : : : [id number] : : : : Phone: [phone]+ Echocardiogram Report + + :Name: MARIELENA VOSS Study Date: 09/22/2022 Height: 68 in : :[facility] ReadingLocation: Weight: 196 lb : : Gender: Female BSA: 2.0 m2 : :: 1975 Age: 47 yrs BP: 131/87 mmHg: :Reason For Study: DYSPNEA : :Ordering Physician: JOVANA, : :CHEYENNE Performed By: Aida Patel : :Referring: CHEYENNE WHALEY : + + Interpretation Summary The ejection fraction is estimated to be 55-60%. Left ventricular wall thickness is mildly increased. Diastolic parameters suggest probable normal left ventricular diastolic function and normal filling pressures. The right ventricle is normal in size and function. There is mild tricuspid regurgitation. The right ventricular systolic pressure is estimated to be at least 25 mmHg based on an estimated right atrial pressure of 3 mm Hg. Procedure: A two-dimensional transthoracic echocardiogram with color flow and Doppler was performed. The study quality was technically adequate. Parasternal short axis images technically limited. There is no prior echocardiogram noted for this patient. The patient was in sinus rhythm with heart rates between 80-99 bpm during the exam. Left Ventricle: The left ventricle is normal in size. Left ventricular wall thickness is mildly increased. The ejection fraction is estimated to be 55- 60%. Diastolic parameters suggest probable normal left ventricular diastolic function and normal filling pressures. Right Ventricle: The right ventricle is normal in size and function. Atria: The left atrial size is normal. Right atrial size is normal. There is no Doppler evidence for an interatrial shunt. Mitral Valve: The mitral valve is normal in structure and function. There is trace mitral regurgitation. Aortic Valve: The aortic valve is not well visualized. The aortic valve opens well. There is no aortic valve stenosis. No aortic regurgitation is present. Tricuspid Valve: The tricuspid valve is normal in structure and function. There is mild tricuspid regurgitation. The right ventricular systolic pressure is estimated to be at least 25 mmHg based on an estimated right atrial pressure of 3 mm Hg. Pulmonic Valve: The pulmonic valve is not well visualized. Great Vessels: The aortic root is normal size. The dimensions of the ascending aorta are normal. The IVC is of normal diameter and collapses greater than 50% with a sniff. This suggests a low right atrial pressure of 3 mm Hg. Pericardium/ Pleura There is no pericardial effusion. There is no pleural effusion. MMode/2D Measurements & Calculations LVIDd: 4.6 cm LVOT diam: 2.1 cm LVIDs: 3.4 cm Ao root diam: 2.9 cm FS: 25.8 % asc Aorta Diam: 2.8 cm IVSd: 0.90 cm Ao Arch Diam (Prox Trans): 2.8 cm LVPWd: 1.2 cm LV steward. diameter/BSA (cm/m^2): 2.3 LV sys. diameter/BSA (cm/m^2): 1.7 LA A2 area: 18.8 cm2 RA long axis: 5.0 cm LA A4 area: 15.0 cm2 RA area: 13.9 cm2 LA length (vol): 4.7 cm RA vol: 33.3 ml LA vol: 50.7 ml RA : 16.4 ml/m2 LA vol index: 25.0 ml/m2 IVC diam: 1.8 cm RVD1 (basal): 2.9 cm RVD2 (mid): 2.5 cm TAPSE: 1.8 cm Doppler Measurements & Calculations Ao V2 max: 127.8 cm/sec LVOT Max Rafael: 91.8 cm/sec Ao V2 mean: 89.0 cm/sec LV V1 max P.4 mmHg Ao max P.5 mmHg LV V1 VTI: 17.9 cm Ao mean P.6 mmHg MARC(I,D): 2.4 cm2 Ao V2 VTI: 27.1 cm MARC(V,D): 2.6 cm2 sev ratio: 0.66 MARC indexed to BSA (cm^2/m^2): 1.2 MV E max rafael: 83.5 cm/sec TR max rafael: 233.0 cm/sec MV A max rafael: 62.0 cm/sec TR max P.7 mmHg MV E/A: 1.3 Med Peak E' Rafael: 11.1 cm/sec E/E' med: 7.5 Lat Peak E' Rafael: 12.7 cm/sec E/E' lat: 6.6 E/e' average: 7.1 MV dec time: 0.21 sec SV(LVOT): 64.4 ml Reading Physician:09:46 AM
--- NOTE | 2022-09-22 | DI.MG.S_ITS ---
BILATERAL DIGITAL SCREENING MAMMOGRAM 3D/2D WITH CAD: 09/22/2022 CLINICAL: Routine screening. Comparison is made to exams dated: 09/20/2020 mammogram and 12/21/2016 mammogram - [facility]. Both breasts are heterogeneously dense, which may obscure small masses (category c / 51-75% glandular tissue). Current study was also evaluated with a Computer Aided Detection (CAD) system. No significant masses, calcifications, or other findings are seen in either breast. There has been no significant interval change. IMPRESSION: NEGATIVE There is no mammographic evidence of malignancy. A 1 year screening mammogram is recommended. Based on the Tyrer Cuzick model (a risk assessment model) the patient's lifetime risk is 14.1% and her 10 year risk is 2.9%. According to the ACR, ACS, and NCCN guidelines, an annual breast MRI exam along with mammogram is recommended if the patient's lifetime risk is 20% or greater. This exam was interpreted at Station ID: [id number]. NOTE: For mammograms, a report in lay terms will be sent to the patient. Approximately 15% of breast malignancies will not be visualized mammographically. In the management of a palpable breast mass, a negative mammogram must not discourage biopsy of a clinically suspicious lesion. Electronically Signed By: Curtis espinoza/nicole:09/22/2022 11:18:08 letter sent: Normal Exam ACR BI-RADS Category 1: Negative 3341F
== END ==
PROVIDERS: Family Provider Family Medicine; PCP Family Medicine; Referring Provider Family Medicine; Visit Provider Family Medicine
DX: R06.00 Dyspnea, unspecified (principal); Z12.31 Encounter for screening mammogram for malignant neoplasm of breast; I07.1 Rheumatic tricuspid insufficiency
CPT/HCPCS: 77063; 77067; 93306

== ENCOUNTER → 2022-09-23 15:40 | Outpatient (CLI) | payer OTHER, SELFPAY ==
[2021-09-24 17:25] VITALS: BMI 27.6
[2022-09-23 17:28] LABS: COVID19 -Nasal RAPID POSITIVE (Negative)
== END ==
PROVIDERS: Family Provider Family Medicine; PCP Family Medicine; Referring Provider Internal Medicine; Visit Provider Internal Medicine
DX: U07.1 COVID-19 (principal)
CPT/HCPCS: 87635; C9803

== ENCOUNTER → 2023-07-15 08:16 | Outpatient (CLI) | payer OTHER, SELFPAY ==
[2021-09-24 17:25] VITALS: BMI 27.6
--- NOTE | 2023-07-15 | DI.US.S_ITS ---
PROCEDURE: US PELVIC COMPLETE INDICATIONS: PELVIC PAIN TECHNIQUE: Real-time scanning was performed of the pelvic organs, with image documentation. Additional endovaginal scanning was necessary due to incomplete visualization of the adnexal and endometrial structures by transabdominal scanning. COMPARISON: [facility], , PELVIC COMPLETE, 08/26/2020, 16:27. FINDINGS: Uterus: Anteverted positioning. Uterus is measures 8.9 x 4.1 x 3.8 cm. Endometrium is 5 mm. Echotexture is heterogeneous. There are small intramural fibroids measuring 1 cm or smaller. Ovaries: Not well seen. Prominent bowel gas obscures evaluation. Other: Prominent pelvic vessels are seen. No pathologic free fluid. IMPRESSION: Endometrium measures 5 mm. No acute abnormality identified. Ovaries are not well seen due to overlying bowel gas. Prominent pelvic vessels can sometimes be seen with pelvic congestion. Dictated by: Maikol Fernandez M.D. on 07/20/2023 at 10:13 Approved by: Maikol Fernandez M.D. on 07/20/2023 at 10:15
== END ==
PROVIDERS: Family Provider Family Medicine; PCP Family Medicine; Referring Provider Family Medicine; Visit Provider Family Medicine
DX: D25.1 Intramural leiomyoma of uterus (principal); R10.2 Pelvic and perineal pain
CPT/HCPCS: 76830; 76856; 93975

== ENCOUNTER → 2023-10-19 11:05 | Outpatient (CLI) | payer OTHER, SELFPAY ==
[2021-09-24 17:25] VITALS: BMI 27.6
--- NOTE | 2023-10-19 | DI.MG.S_ITS ---
BILATERAL DIGITAL SCREENING MAMMOGRAM 3D/2D WITH CAD: 10/19/2023 CLINICAL: Routine screening. Comparison is made to exams dated: 09/22/2022 mammogram, 09/20/2020 mammogram, and 12/21/2016 mammogram - [facility]. Both breasts are heterogeneously dense, which may obscure small masses (category c / 51-75% glandular tissue). Current study was also evaluated with a Computer Aided Detection (CAD) system. No significant masses, calcifications, or other findings are seen in either breast. There has been no significant interval change. IMPRESSION: NEGATIVE There is no mammographic evidence of malignancy. A 1 year screening mammogram is recommended. Based on the Tyrer Cuzick model (a risk assessment model) the patient's lifetime risk is 14.0% and her 10 year risk is 3.0%. According to the ACR, ACS, and NCCN guidelines, an annual breast MRI exam along with mammogram is recommended if the patient's lifetime risk is 20% or greater. This exam was interpreted at Station ID: [id number]. NOTE: For mammograms, a report in lay terms will be sent to the patient. Approximately 15% of breast malignancies will not be visualized mammographically. In the management of a palpable breast mass, a negative mammogram must not discourage biopsy of a clinically suspicious lesion. Electronically Signed By: Curtis espinoza/nicole:10/19/2023 12:17:10 letter sent: Normal Exam ACR BI-RADS Category 1: Negative 3341F
== END ==
PROVIDERS: Family Provider Family Medicine; PCP Family Medicine; Referring Provider Family Medicine; Visit Provider Family Medicine
DX: Z12.31 Encounter for screening mammogram for malignant neoplasm of breast (principal)
CPT/HCPCS: 77063; 77067

== ENCOUNTER → 2025-05-08 07:48 | Outpatient (CLI) | payer OTHER, SELFPAY ==
[2021-09-24 17:25] VITALS: BMI 27.6
--- NOTE | 2025-05-08 07:50 | DI.MG.S_ITS ---
MM screening mammo BI: 05/08/2025. BI-RADS: 1 CLINICAL: 50-year old female for bilateral screening mammogram. Tyrer-Cuzick lifetime risk of 16.2%. No personal or first-degree family history of breast cancer. PRIOR EXAMS 10/19/2023, 09/22/2022, 09/20/2020, 12/21/2016. MAMMOGRAPHY TECHNIQUE: 2D and 3D (tomosynthesis) digital mammographic views obtained, with additional images as needed for full coverage. Current study was also evaluated with a Computer Aided Detection (CAD) system. DENSITY C. The breasts are heterogeneously dense, which may obscure small masses. MAMMOGRAPHY FINDINGS Bilateral: No suspicious mass, asymmetry, microcalcification, or other abnormality seen. No significant change from comparison. IMPRESSION: * No evidence of malignancy. RECOMMENDATIONS Bilateral * Annual screening mammography. OVERALL ASSESSMENT CATEGORY BI-RADS-1: Negative. The [employer] recommends annual screening mammography beginning at age 40 for women with average risk of breast cancer. ELECTRONICALLY SIGNED: Lila Anthony M.D. on 05/08/2025 at 09:03:31 PM PT Interpreting Station ID: [id number]
--- NOTE | 2025-05-08 07:50 | DI.ECHO.S_ITS ---
[facility] : : [address] : : [place] : : [id number] : : Phone: [phone] Echocardiogram Report + + :Name: MARIELENA VOSS Study Date: 05/08/2025 Height: 67 in : :[facility] ReadingLocation: Weight: 208 lb : : Gender: Female BSA: 2.1 m2 : :: 1975 Age: 50 yrs BP: 110/75 mmHg: :Reason For Study: TACHYCARDIA : :Ordering Physician: JOVANA, : :CHEYENNE Performed By: Aida Patel : :Referring: CHEYENNE WHALEY : + + Interpretation Summary The ejection fraction is estimated to be 55-60%. Normal diastolic function. The right ventricle is normal in size and function. There is mild tricuspid regurgitation. The right ventricular systolic pressure is estimated to be at least 22 mmHg based on an estimated right atrial pressure of 3 mm Hg. No significant change compared to prior study 09/22/2022. Procedure: A two-dimensional transthoracic echocardiogram with color flow and Doppler was performed. The study quality was technically adequate. Comparison is made with the echocardiogram of 09/22/2022. The patient was in sinus rhythm with heart rates between 79-101 bpm during the exam. Left Ventricle: The left ventricle is normal in size and wall thickness. The ejection fraction is estimated to be 55-60%. Normal diastolic function. Right Ventricle: The right ventricle is normal in size and function. Atria: The left atrial size is normal. Right atrial size is normal. There is no Doppler evidence for an interatrial shunt. Mitral Valve: The mitral valve leaflets appear to open well. There is trace mitral regurgitation. Aortic Valve: The aortic valve is trileaflet. The aortic valve opens well. There is no aortic valve stenosis. No aortic regurgitation is present. Tricuspid Valve: The tricuspid valve leaflets are thin and pliable. There is mild tricuspid regurgitation. The right ventricular systolic pressure is estimated to be at least 22 mmHg based on an estimated right atrial pressure of 3 mm Hg. Pulmonic Valve: The pulmonic valve is not well visualized. There is no pulmonic valvular regurgitation. Great Vessels: The aortic root is normal size. The dimensions of the ascending aorta are normal. The IVC is of normal diameter and collapses greater than 50% with a sniff. This suggests a low right atrial pressure of 3 mm Hg. Pericardium/ Pleura There is no pericardial effusion. There is no pleural effusion. MMode/2D Measurements & Calculations LVIDd: 5.4 cm LVOT diam: 2.0 cm LVIDs: 3.4 cm Ao root diam: 2.8 cm FS: 36.6 % asc Aorta Diam: 2.7 cm EPSS: 0.61 cm Ao Arch Diam (Prox Trans): 2.4 cm IVSd: 0.81 cm LVPWd: 0.66 cm LV steward. diameter/BSA (cm/m^2): 2.6 LV sys. diameter/BSA (cm/m^2): 1.7 LA A2 area: 15.5 cm2 RA long axis: 4.3 cm LA A4 area: 12.2 cm2 RA area: 13.1 cm2 LA length (vol): 4.4 cm RA vol: 34.0 ml LA vol: 36.4 ml RA : 16.5 ml/m2 LA vol index: 17.7 ml/m2 IVC diam: 1.7 cm RVD1 (basal): 3.3 cm RVD2 (mid): 2.5 cm TAPSE: 2.0 cm Doppler Measurements & Calculations Ao V2 max: 118.0 cm/sec LVOT Max Rafael: 85.9 cm/sec Ao V2 mean: 86.1 cm/sec LV V1 max P.0 mmHg Ao max P.6 mmHg LV V1 VTI: 15.9 cm Ao mean P.2 mmHg MARC(I,D): 2.1 cm2 Ao V2 VTI: 23.1 cm MARC(V,D): 2.2 cm2 sev ratio: 0.69 MARC indexed to BSA (cm^2/m^2): 1.0 MV E max rafael: 76.9 cm/sec TR max rafael: 217.3 cm/sec MV A max rafael: 69.7 cm/sec TR max P.9 mmHg MV E/A: 1.1 PA V2 max: 102.5 cm/sec Med Peak E' Rafael: 11.2 cm/sec PA V2 mean: 72.4 cm/sec E/E' med: 6.9 PA mean P.4 mmHg Lat Peak E' Rafael: 13.8 cm/sec PA pr(Accel): 39.6 mmHg E/E' lat: 5.6 E/e' average: 6.2 MV dec time: 0.13 sec SV(LVOT): 48.0 ml Reading Physician:01:15 PM
== END ==
PROVIDERS: Family Provider Family Medicine; PCP Family Medicine; Referring Provider Family Medicine; Visit Provider Family Medicine
DX: Z12.31 Encounter for screening mammogram for malignant neoplasm of breast (principal); R92.333 Mammographic heterogeneous density, bilateral breasts; I07.1 Rheumatic tricuspid insufficiency; R00.0 Tachycardia, unspecified
CPT/HCPCS: 77063; 77067; 93306

== ENCOUNTER → 2025-09-05 12:45 | Outpatient (CLI) | payer OTHER, SELFPAY ==
[2021-09-24 17:25] VITALS: BMI 27.6
[2025-09-05 15:21] LABS: Follicle Stimulating Hormone 16.2 mIU/mL
== END ==
PROVIDERS: Family Provider Family Medicine; PCP Family Medicine; Referring Provider Family Medicine; Visit Provider Family Medicine
DX: N94.6 Dysmenorrhea, unspecified (principal)
CPT/HCPCS: 36415; 83001; 83002

== ENCOUNTER → 2025-09-24 14:56 | Outpatient (CLI) | payer OTHER, SELFPAY ==
[2021-09-24 17:25] VITALS: BMI 27.6
== END ==
LOC: RESP 14:57
PROVIDERS: Family Provider Family Medicine; PCP Family Medicine; Referring Provider Family Medicine; Visit Provider Family Medicine
DX: R06.09 Other forms of dyspnea (principal)
CPT/HCPCS: 94060; 94726; 94729